=== PATIENT | male | born 1930 | race Caucasian/White ===

== ENCOUNTER 2017-12-18 20:36 | Inpatient (IN) | payer MEDICARE, MEDICAID ==
[~2017-12-18] VITALS: Ht 175.3 cm; Wt 74.8 kg
--- NOTE | 2017-12-18 20:50 | NUR ---
MD GONZALEZ AT BEDSIDE FOR MSE
[2017-12-18 21:02] LABS: BASOPHILS # (AUTO) 0.1 K/uL (0.0-8.0); BASOPHILS % (AUTO) 0.6 % (0.0-2.0); HEMATOCRIT 39.5 % (36.7-47.1); LYMPHOCYTES # (AUTO) 1.5 K/uL (20.0-40.0); LYMPHOCYTES % (AUTO) 6.2 % (20.5-51.5); MEAN CORPUSCULAR HEMOGLOBIN 28.1 uug (23.8-33.4); MEAN CORPUSCULAR HGB CONC 33 g/dL (32.5-36.3); MEAN CORPUSCULAR VOLUME 84.9 fL (73.0-96.2); MONOCYTES # (AUTO) 2.2 K/uL (2.0-10.0); NEUTROPHILS # (AUTO) 20.4 K/uL (1.8-8.9); NEUTROPHILS % (AUTO) 84.2 % (38.5-71.5); PLATELET COUNT (AUTO) 348 K/uL (152-348); RED BLOOD CELL COUNT(AUTO) 4.65 MIL/uL (4.06-5.63); WHITE BLOOD COUNT (AUTO) 24.2 K/uL (3.6-10.2)
[2017-12-18 21:03] LABS: *BILIRUBIN,URIN NEGATIVE (NEGATIVE); *BLOOD, URINE 2+ (NEGATIVE); *KETONES,URINE NEGATIVE (NEGATIVE); *PROTEIN,URINE TRACE (NEGATIVE); *UROBILINOGEN,URINE 0.2 E.U./dl (NORMAL); NITRITE, URINE NEGATIVE (NEGATIVE); PH,URINE 5.5 (5.0-8.0); UGLUCOSE NEGATIVE (NEGATIVE)
[2017-12-18 21:10] LABS: CARBON DIOXIDE 20 mmol/L (21-32); CHLORIDE 105 mmol/L (98-107); CREATININE 3.3 mg/dL (0.6-1.3); GLUCOSE 186 mg/dL (74-106); POTASSIUM 4.7 mmol/L (3.5-5.1); UREA NITROGEN, BLOOD 61 mg/dL (7-18)
[2017-12-18] MEDS ORDERED: IPRA0.2S6 NEB (21:14)
[2017-12-18] MEDS ORDERED: ESCI10TA PO (21:14)
[2017-12-18] MEDS ORDERED: BISA10SU12 RC (21:14)
[2017-12-18] MEDS ORDERED: MEGE400O2 PO (21:14)
[2017-12-18] MEDS ORDERED: FINA5TAB3 PO (21:14)
[2017-12-18] MEDS ORDERED: ASPI81TA44 PO (21:14)
[2017-12-18] MEDS ORDERED: QUET25TA PO (21:14)
[2017-12-18] MEDS ORDERED: MESA4ENE4 RC (21:14)
[2017-12-18] MEDS ORDERED: AMIN30LI27 PO (21:14)
[2017-12-18] MEDS ORDERED: MAG30ORA PO (21:14)
[2017-12-18] MEDS ORDERED: AMIO200T4 PO (21:14)
[2017-12-18] MEDS ORDERED: PREG50CA PO (21:14)
[2017-12-18] MEDS ORDERED: NA P133E RC (21:14)
[2017-12-18] MEDS ORDERED: ACET325T53 PO (21:14)
[2017-12-18] MEDS ORDERED: MAGN400O6 PO (21:14)
[2017-12-18] MEDS ORDERED: TAMS-3 PO (21:14)
[2017-12-18] MEDS ORDERED: CALC-555 PO (21:14)
[2017-12-18] MEDS ORDERED: ALBU2.5V38 IH (21:14)
[2017-12-18] MEDS ORDERED: IV NORMAL SALINE 1000 ML BAG IV ONE ×2 (21:15→22:45)
--- NOTE | 2017-12-18 21:17 | NUR ---
PT'S FAMILY ARRIVES TO BEDSIDE.
[2017-12-18 21:24] LABS: *CLARITY,URINE CLOUDY (CLEAR); *COLOR,URINE AMBER (YELLOW); LEUKOCYTE ESTERASE ,URINE 1+ (NEGATIVE)
[2017-12-18 21:25] LABS: BACTERIA,URINE MANY /HPF (NONE SEEN); SQUAMOUS EPITHELIAL CELL,UR FEW /HPF (NONE SEEN); WBC,URINE 20-50 /HPF (0-3)
[2017-12-18 21:25] LABS: ALANINE AMINOTRANSFERASE 36 U/L (16-63); ALKALINE PHOSPHATASE 73 U/L (50-136); ASPARTATE AMINOTRANSFERASE 28 U/L (15-37); BILIRUBIN,DIRECT 0.2 mg/dL (0.0-0.2); BILIRUBIN,TOTAL 0.7 mg/dL (0.2-1.0); TOTAL PROTEIN, SERUM 6.7 g/dL (6.4-8.2)
[2017-12-18 21:26] LABS: MUCUS,URINE FEW /LPF (0-FEW)
[2017-12-18] MEDS ORDERED: LEVOFLOXACIN 500 MG/D5W 100ML PIGGYBACK IV ONE (21:30)
[2017-12-18] MEDS ORDERED: ASPIRIN 300 MG RECTAL SUPP RC ONE (21:30)
[2017-12-18] MEDS ORDERED: PIPERACILLIN SODIUM/TAZOBACTAM 3.375 G in IV DEXTROSE 5% 50 ML IV ONE (21:30)
--- NOTE | 2017-12-18 21:30 | NUR ---
RT AT BEDSIDE FOR ABG DRAWING AND SUCTIONING
--- NOTE | 2017-12-18 21:36 | NUR ---
RU ALVAREZ NP LAND CLASSIFIER.
[2017-12-18] MEDS ORDERED: LEVOFLOXACIN 500 MG/D5W 100 ML ONE (21:37)
[2017-12-18] MEDS ORDERED: PANTOPRAZOLE SODIUM IV 80 MG in IV DEXTROSE 5% 500 ML IV ONE ×2 (21:45→22:15)
[2017-12-18] MEDS ORDERED: PANTOPRAZOLE SODIUM IV 80 MG in IV DEXTROSE 5% 100 ML IV ONE (21:45)
[2017-12-18] MEDS ORDERED: NITROGLYCERIN OINT 1 GM PACKET TP ONE ×2 (21:45→22:25)
[2017-12-18 21:53] LABS: BAND % (MANUAL) 25 % (0-10); LYMPHOCYTES % (MANUAL) 6 % (20-40); MONOCYTES % (MANUAL) 8 % (2-10); NEUTROPHILS % (MANUAL) 61 % (42-75)
--- NOTE | 2017-12-18 22:12 | NUR ---
REPORT GIVEN TO TELEMETRY TD NURSEMENG
[2017-12-18] MEDS ORDERED: PIPERACILLIN/TAZOBACTAM/D5W 50 ML IV ONE (22:14)
[2017-12-18] MEDS ORDERED: ACETAMINOPHEN 650 MG SUPP.RECT RC PRN (22:15)
[2017-12-18] MEDS ORDERED: ONDANSETRON 4 MG/2 ML VIAL IV PRN (22:15)
[2017-12-18] MEDS ORDERED: PANTOPRAZOLE SODIUM 40 MG VIAL ONE (22:17)
[2017-12-18 22:30] VITALS: BP 46/29
--- NOTE | 2017-12-18 22:30 | NUR ---
PT ADMITTED FROM ER TO CCU VIA [facility]. DIAGNOSIS OF SEVERE SEPSIS. ON CONTINUOUS 15L NON REBREATHER MASK 100% WITH O2 SAT 100%. ATTATCHED TO MONITOR. BP NOTED 46/29. NITRO PASTE ON CHEST WAS REMOVED. NS INFUSING FINISHING BOLOS FROM ER ON LEFT A/C. PROTONIX DRIP AT 8MG/HR. FROM ER ON RIGHT A/C. AYAKA PAPERHANGER WAS CALLED REGARDING LOW BP. STATED WILL CALL BACK. AWAITING ORDERS AT THIS TIME.
--- NOTE | 2017-12-18 22:35 | NUR ---
Pt. admitted to TELEMETRY TD, under care of TANIA ESPINAL Belongs List completed
[2017-12-18 22:45] VITALS: BP 47/31
[2017-12-18 23:00] VITALS: BP 138/63
--- NOTE | 2017-12-18 23:04 | NUR ---
IV BOLUS OF NS 500CC WAS HANGED AND COMPLETED.
--- NOTE | 2017-12-18 23:04 | NUR ---
DMITIR INSIDE SALES ASSOCIATE CALLED BACK WITH NEW ORDERS TO START NEOSYNEPHRINE DRIP PRN FOR BP <90. AT THIS TIME, BP IS 138/53 AFTER NITRO PASTE WAS REMOVED.
[2017-12-18 23:15] VITALS: BP 161/45
[2017-12-18] MEDS: IV D5 1/2 NS 1000 ML 1,000 ML IV SCH (23:25)
[2017-12-18 23:30] VITALS: BP 89/44
--- NOTE | 2017-12-18 23:30 | NUR ---
AYAKA CARD PLAYER HERE TO SEE PATIENT. FAMILY AWARE AT BEDSIDE AND SPOKE WITH AYAKA.
--- NOTE | 2017-12-18 23:35 | NUR ---
BP IS 75/47. WILL STAR NEOSYNEPHRINE DRIP.
[2017-12-18] MEDS ORDERED: PHENYLEPHRINE 10 MG/1 ML VIAL ONE (23:44)
[2017-12-18 23:45] VITALS: BP 75/47
[2017-12-19] VITALS (71 sets, daily range): BP systolic 69–162; BP diastolic 30–140
[2017-12-19] MEDS ORDERED: hydrALAZINE HCL 20 MG/1 ML VIAL IV PRN
[2017-12-19] MEDS ORDERED: IPRATROPIUM BROMIDE 0.5 MG/2.5 ML NEBU NEB PRN (00:15)
[2017-12-19] MEDS ORDERED: BISACODYL 10 MG SUPP.RECT RC PRN (00:15)
[2017-12-19] MEDS ORDERED: MAG HYDROX/AL HYDROX/SIMETH 30 ML LIQUID UDC PO PRN (00:15)
[2017-12-19] MEDS ORDERED: FLEET ENEMA 133 ML BOTTLE RC PRN (00:15)
[2017-12-19] MEDS: PHENYLEPHRINE IV 40 MG in IV DEXTROSE 5% 250 ML IV PRN ×2 (00:26→08:00)
--- NOTE | 2017-12-19 00:38 | NUR ---
LACTID ACID 4.[address] ROWELL. ORDERED 2L NS BOLUS. NOTED AND CARRIED OUT.
[2017-12-19] MEDS ORDERED: IV NS 1000 ML 2,000 ML IV ONE (00:45)
[2017-12-19] MEDS: IPRATROPIUM BROMIDE 0.5 MG/2.5 ML NEBU NEB PRN (00:52)
[2017-12-19] MEDS: ALBUTEROL SULFATE 2.5 MG/ 0.5 ML NEBU NEB PRN (00:52)
[2017-12-19 02:47] LABS: ABG PCO2 23.9 mmHg (35.0-45.0); ABG PH 7.416 (7.350-7.450); ABG PO2 77.3 mmHg (75.0-100.0); ABG SITE RIGHT BRACHIAL; ABG TOTAL HEMOGLOBIN 10.9 G/dL (13.5-18.0); COHb 1.1 % (0.5-1.5); MetHb 0.3 % (0.0-1.5); O2Hb 93.8 % (94.0-97.0); VENT MODE Nasal Cannula
[2017-12-19 05:26] LABS: BASOPHILS % (AUTO) 0.1 % (0.0-2.0); EOSINOPHILS % (AUTO) 0.1 % (0.0-7.0); HEMATOCRIT 31.9 % (36.7-47.1); HEMOGLOBIN 10.5 g/dL (12.5-16.3); LYMPHOCYTES # (AUTO) 0.8 K/uL (20.0-40.0); LYMPHOCYTES % (AUTO) 4.3 % (20.5-51.5); MEAN CORPUSCULAR HEMOGLOBIN 27.8 uug (23.8-33.4); MEAN CORPUSCULAR HGB CONC 33 g/dL (32.5-36.3); MEAN CORPUSCULAR VOLUME 84.3 fL (73.0-96.2); MONOCYTES # (AUTO) 2.2 K/uL (2.0-10.0); MONOCYTES % (AUTO) 12.6 % (0.0-11.0); NEUTROPHILS # (AUTO) 14.8 K/uL (1.8-8.9); NEUTROPHILS % (AUTO) 82.9 % (38.5-71.5); PLATELET COUNT (AUTO) 298 K/uL (152-348); RED BLOOD CELL COUNT(AUTO) 3.79 MIL/uL (4.06-5.63); WHITE BLOOD COUNT (AUTO) 17.8 K/uL (3.6-10.2)
--- NOTE | 2017-12-19 05:34 | NUR ---
PATIENT SUCTIONED VIA NASOPHARYNX
[2017-12-19] MEDS ORDERED: PIPERACILLIN/TAZO 2.25 GM VIAL ONE (05:37)
[2017-12-19 05:50] LABS: ALANINE AMINOTRANSFERASE 24 U/L (16-63); ALKALINE PHOSPHATASE 52 U/L (50-136); ASPARTATE AMINOTRANSFERASE 23 U/L (15-37); BILIRUBIN,TOTAL 0.5 mg/dL (0.2-1.0); CARBON DIOXIDE 18 mmol/L (21-32); CHLORIDE 110 mmol/L (98-107); CREATININE 2.8 mg/dL (0.6-1.3); GLUCOSE 175 mg/dL (74-106); MAGNESIUM 1.8 mg/dL (1.8-2.4); PHOSPHOROUS 3.2 mg/dL (2.5-4.9); TOTAL PROTEIN, SERUM 4.8 g/dL (6.4-8.2); UREA NITROGEN, BLOOD 57 mg/dL (7-18)
--- NOTE | 2017-12-19 06:00 | NUR ---
had another bowel movement loose & thick w/ foul odor. repositioned pt on his side w/ hob elevated.
[2017-12-19] MEDS: PIPERACILLIN/TAZOBACTAM/D5W 2.25 G in PREMIXED 1 EACH IV SCH ×2 (06:10→14:14)
[2017-12-19 06:31] LABS: CHOLESTEROL 113 mg/dL (<200); HDL CHOLESTEROL 12 mg/dL (40-60); TRIGLYCERIDES 284 MG/DL (30-150)
--- NOTE | 2017-12-19 07:25 | NUR ---
Attending services Epic group Demetry in the unit and report given, orders to bolus 1L normal saline, and ABG to be done. Orders implemented.
[2017-12-19] MEDS: PROTEIN SUPPLEMENT (PROSTAT) 30 ML LIQUID PO SCH (08:00)
[2017-12-19] MEDS ORDERED: IV NS 1000 ML 1,000 ML IV ONE (08:15)
--- NOTE | 2017-12-19 08:29 | NUR ---
0715 Upon receiving bedside report pt's assessed and found to have 102.8 fever, measured rectally. HR 130-140's. RR in the upper 30's pt. shaking as reported pt. with history of alzeimers. Addendum: 12/19/17 at 0835 by PAULINA GAYLE RN Patient started on cooling measures, and antipyretics administered.
[2017-12-19] MEDS: MEGESTROL ACETATE 400 MG/10 ML LIQUID UDC PO SCH (08:46)
[2017-12-19] MEDS: PANTOPRAZOLE SODIUM 40 MG VIAL IV SCH ×2 (08:46→21:18)
[2017-12-19] MEDS: FINASTERIDE 5 MG TABLET PO SCH (08:47)
[2017-12-19] MEDS: CALCIUM CARB/VITAMIN D 500MG-200UNITS TABLET PO SCH ×2 (08:47→16:31)
[2017-12-19] MEDS: Z GUARD REMEDY PASTE 57 GM TUBE TOP SCH ×2 (08:48→21:19)
[2017-12-19] MEDS ORDERED: ESCITALOPRAM OXALATE 10 MG TABLET PO SCH ×2 (09:00)
[2017-12-19] MEDS ORDERED: AMIODARONE HCL 200 MG TABLET PO SCH (09:00)
[2017-12-19] MEDS ORDERED: Medication Not On Formulary EA (Amino Acids/Protein Hydrolys (Pro-Stat Sugar Free Liquid PO SCH (09:00)
[2017-12-19] MEDS ORDERED: PREGABALIN 50 MG CAPSULE PO SCH ×2 (09:00)
--- NOTE | 2017-12-19 09:40 | NUR ---
Pulmonology services in the unit to see and examine patient, full report given, see orders.
--- NOTE | 2017-12-19 10:17 | NUR ---
ABG RESULTS GIVEN TO THE DOUGLAS GALLARDO. [employer] DIRECTOR WOMEN IS CURRENTLY DOWN, TECHNICAL SUPPORT NOTIFIED.
--- NOTE | 2017-12-19 10:37 | NUR ---
Gi services Dr. Forde in the unit to see and examine pt. at this time attending Lenard Marte in the unit.
--- NOTE | 2017-12-19 12:04 | NUR ---
At this time pt. on SVT rhythm sbp of 91/54, attending Lenard Bains in the unit, Dr. Romero shorthand reporter called and notified by Nara orders received and carried.
[2017-12-19] MEDS ORDERED: AMIODARONE HCL IV 150 MG in IV DEXTROSE 5% 100 ML IV ONE ×2 (12:15→16:30)
[2017-12-19] MEDS ORDERED: AMIODARONE HCL IV 900 MG in IV DEXTROSE 5% 482 ML IV PRN (12:15)
[2017-12-19 12:24] LABS: *OCCULT BLOOD STOOL POSITIVE (NEGATIVE)
--- NOTE | 2017-12-19 14:25 | NUR ---
A call to Dr. Henry to notify of low urine output. message left with soyfreeze operator, awaiting call back.
--- NOTE | 2017-12-19 15:00 | NUR ---
2nd call to nephro awaiting call back.
[2017-12-19 15:12] LABS: *BILIRUBIN,URIN 1+ (NEGATIVE); *BLOOD, URINE 3+ (NEGATIVE); *CLARITY,URINE CLOUDY (CLEAR); *KETONES,URINE TRACE (NEGATIVE); *PROTEIN,URINE 2+ (NEGATIVE); *UROBILINOGEN,URINE 0.2 E.U./dl (NORMAL); LEUKOCYTE ESTERASE ,URINE 1+ (NEGATIVE); NITRITE, URINE NEGATIVE (NEGATIVE); UGLUCOSE NEGATIVE (NEGATIVE)
--- NOTE | 2017-12-19 15:15 | NUR ---
Cardiology services Dr. Romero in the unit to see and examine, pt. orders received and carried it. also notified of low urine output.
[2017-12-19 15:19] LABS: *COLOR,URINE DARK YELLOW (YELLOW)
[2017-12-19 15:20] LABS: RBC,URINE 20-50 /HPF (0-3)
[2017-12-19 15:21] LABS: BACTERIA,URINE MANY /HPF (NONE SEEN); SQUAMOUS EPITHELIAL CELL,UR FEW /HPF (NONE SEEN); URIC ACID CRYSTALS,URINE MODERATE /HPF (NONE SEEN); WBC,URINE 50-80 /HPF (0-3)
[2017-12-19 15:25] LABS: *CREATININE,URINE 182.7 mg/dL (30-125); *URINE TOTAL PROTEIN RANDOM 137.3 mg/dL (<150/24HR)
--- NOTE | 2017-12-19 16:15 | NUR ---
At this time with repositioning to left side patient went into SVT sustained, Wholesale And Retail Merchant Dr. Romero notified. Addendum: 12/29/17 at 1647 by PAULINA GAYLE RN Orders to bolus with 150mg of amiodarone x1 received.
--- NOTE | 2017-12-19 16:30 | NUR ---
Mma Fighter Dr. Romero in to personally examine pt. cardiac rhythm remains in SVT's above 160" with stable sbp. Order received. see order hx.
[2017-12-19] MEDS ORDERED: QUETIAPINE FUMARATE 25 MG TABLET PO SCH ×2 (18:00→21:00)
--- NOTE | 2017-12-19 18:00 | NUR ---
After bladder scanned and a reading of 26cc urine obtained Dr. Romero called orders for a 500cc Normal saline bolus received.
--- NOTE | 2017-12-19 18:30 | NUR ---
Attending N.P. called and informed of bladder scan and irrigation results. orders for CT. scan to abodmen and pelvis received without contrast received. And orders to consult Urologist bakery demonstrator. Orders carried.
[2017-12-19] MEDS ORDERED: IV NORMAL SALINE 500 ML IV ONE (18:45)
--- NOTE | 2017-12-19 18:57 | NUR ---
A call to Dr. Luna informed of consult ordered by attending N.P. Full report of pt's current condition including recent labs. Orders to continue monitor received.
--- NOTE | 2017-12-19 19:30 | NUR ---
PT IN ROOM ON NRM 15L WITH 100% O2 SAT. NO S/S OF ACUTE DISTRESS. HR 111 SINUS TACHY WITH BP 128/75. NO FEVER OR CHILLS PRESENT. UNABLE TO MAKE NEEDS KNOWN. MAINTAINING AMIODARONE DRIP AT 0.5 MG. BOLUS OF 500ML NS STILL PRESENT. 3 SIDE RAILS RAISED WITH HOB [address] WITH AIR MATTRESS ON. AWAITING CT SCAN OF ABDOMEN. WILL CONTINUE TO MONITOR. F/C INTACT CLEAR BERNARD.
--- NOTE | 2017-12-19 20:00 | NUR ---
Pt assisted to radiology department for CT scan.
[2017-12-19] MEDS ORDERED: MEROPENEM 500 MG in IV NORMAL SALINE 50 ML IV SCH (20:30)
--- NOTE | 2017-12-19 20:55 | NUR ---
PHARMACY CLINICAL NOTES: (VANCOMYCIN DOSING) S: 87 Yo male with DX of septic shock, GNR UTI, possible aspiration PNA; previously on Zosyn Md changed to Merrem and Vancomycin per pharmacy. O: BUN/SCR 57/2.8; WBC 17.8; T MAX 102.8; DOSING WT 137 LBS A/P: Per calculation a regimen of 1gm q48h would yield peak of 39.3and trough of 16.86. However; due to advanced age and elevated Scr (2.8) will dose vanco per fall of level . Will give one dose of 1 gm and will ck random level in 48hr if renal fxn does not change. will continue to monitor.
[2017-12-19] MEDS ORDERED: LEVOFLOXACIN 250MG /D5W 250 MG in PREMIXED 1 EACH IV SCH (21:00)
[2017-12-19] MEDS ORDERED: MESALAMINE ENEMA 4 G/60 ML BOTTLE RC SCH (21:00)
[2017-12-19] MEDS: TAMSULOSIN HCL 0.4 MG CAP.SR.24H PO SCH (21:00)
[2017-12-19] MEDS: IV D5 1/2 NS 1000 ML 1,000 ML IV SCH (21:17)
[2017-12-19] MEDS: MEROPENEM 500 MG in IV NORMAL SALINE 50 ML IV SCH (21:18)
[2017-12-19] MEDS ORDERED: VANCOMYCIN IV 1 G in PREMIXED 0 EACH IV ONE (22:00)
[2017-12-20] VITALS (30 sets, daily range): BP systolic 89–137; BP diastolic 25–102
--- NOTE | 2017-12-20 01:00 | NUR ---
No episodes of increased HR at this time. No fever or chills present. No adverse reactions to recent merrem and vancomycin IV therapy. Will continue to monitor.
[2017-12-20 05:14] LABS: BASOPHILS % (AUTO) 0.2 % (0.0-2.0); EOSINOPHILS % (AUTO) 0.1 % (0.0-7.0); HEMATOCRIT 30.5 % (36.7-47.1); HEMOGLOBIN 10.2 g/dL (12.5-16.3); LYMPHOCYTES # (AUTO) 0.2 K/uL (20.0-40.0); LYMPHOCYTES % (AUTO) 1.1 % (20.5-51.5); MEAN CORPUSCULAR HGB CONC 33 g/dL (32.5-36.3); MEAN CORPUSCULAR VOLUME 83.9 fL (73.0-96.2); MONOCYTES # (AUTO) 4.3 K/uL (2.0-10.0); MONOCYTES % (AUTO) 24.7 % (0.0-11.0); NEUTROPHILS # (AUTO) 12.9 K/uL (1.8-8.9); NEUTROPHILS % (AUTO) 73.9 % (38.5-71.5); PLATELET COUNT (AUTO) 260 K/uL (152-348); RED BLOOD CELL COUNT(AUTO) 3.64 MIL/uL (4.06-5.63); WHITE BLOOD COUNT (AUTO) 17.5 K/uL (3.6-10.2)
[2017-12-20 05:19] LABS: CARBON DIOXIDE 16 mmol/L (21-32); CHLORIDE 106 mmol/L (98-107); CREATININE 2.6 mg/dL (0.6-1.3); GLUCOSE 139 mg/dL (74-106); MAGNESIUM 1.6 mg/dL (1.8-2.4); PHOSPHOROUS 3.1 mg/dL (2.5-4.9); POTASSIUM 3.9 mmol/L (3.5-5.1); UREA NITROGEN, BLOOD 60 mg/dL (7-18)
--- NOTE | 2017-12-20 06:30 | NUR ---
No episodes of SVT or s/s of resp distress overnight. Pt suctioned with moderate linton mucus. No fever or chills. F/c intact draining up to 260cc output. Maintaining nonverbal status. HOB elevated 30 degrees with two side rails raised. Will endorse to day shift.
[2017-12-20] MEDS: PROTEIN SUPPLEMENT (PROSTAT) 30 ML LIQUID PO SCH (07:48)
--- NOTE | 2017-12-20 08:00 | NUR ---
Attending services Roni in the unit to see and examine pt.
[2017-12-20] MEDS ORDERED: IV NORMAL SALINE 500 ML BAG IV ONE (08:15)
[2017-12-20] MEDS: LORAZEPAM 2 MG/1 ML VIAL IV PRN (08:25)
[2017-12-20] MEDS ORDERED: DEXTROSE 5% IV ONE (08:30)
[2017-12-20] MEDS ORDERED: CALCIUM CHLORIDE IV ONE (08:30)
[2017-12-20] MEDS ORDERED: IV NORMAL SALINE 500 ML IV ONE (08:45)
--- NOTE | 2017-12-20 08:54 | NUR ---
NG- tube in and Kub for placement order.
[2017-12-20] MEDS ORDERED: AMIODARONE HCL 200 MG TABLET PO SCH (09:00)
[2017-12-20] MEDS: FINASTERIDE 5 MG TABLET PO SCH (09:00)
[2017-12-20] MEDS: CALCIUM CARB/VITAMIN D 500MG-200UNITS TABLET PO SCH ×3 (09:00→16:22)
[2017-12-20] MEDS: MEGESTROL ACETATE 400 MG/10 ML LIQUID UDC PO SCH ×2 (09:00→12:41)
[2017-12-20] MEDS: MEROPENEM 500 MG in IV NORMAL SALINE 50 ML IV SCH ×2 (09:04→20:20)
[2017-12-20] MEDS: Z GUARD REMEDY PASTE 57 GM TUBE TOP SCH ×2 (09:05→20:24)
[2017-12-20] MEDS: PANTOPRAZOLE SODIUM 40 MG VIAL IV SCH ×2 (09:05→20:23)
[2017-12-20 09:24] LABS: BAND % (MANUAL) 13 % (0-10); EOSINOPHILS % (MANUAL) 0 % (0-8); LYMPHOCYTES % (MANUAL) 10 % (20-40); MONOCYTES % (MANUAL) 15 % (2-10); NEUTROPHILS % (MANUAL) 62 % (42-75)
[2017-12-20] MEDS: MAGNESIUM SULFATE/D5W 100 ML IV SCH ×2 (10:03→11:06)
--- NOTE | 2017-12-20 12:00 | NUR ---
Cardiology services Dr. Romero in the unit to examine patient.
--- NOTE | 2017-12-20 12:19 | NUR ---
PHARMACY CLINICAL NOTES: (VANCOMYCIN DOSING) S: To continue Vancomycin on this 87 Yo male with DX of septic shock, GNR UTI, possible aspiration PNA; previously on Zocecilio Cook changed to Merrem and Vancomycin per pharmacy. O: BUN/SCR 60/2.6; WBC 17.5; T MAX 98.6; DOSING WT 137 LBS A/P: Due to advanced age and elevated Scr (2.6) will continue to dose vanco per fall of level . One dose of 1 gm was given last night at 2200. Random is on order for tomorrow am. Will follow the level for further dosing.
[2017-12-20] MEDS: AMIODARONE HCL 200 MG TABLET PO SCH ×2 (12:42→20:23)
[2017-12-20] MEDS: IV D5 1/2 NS 1000 ML 1,000 ML IV SCH (16:24)
--- NOTE | 2017-12-20 17:45 | NUR ---
Dr. Moreno in the unit to examine patient.
--- NOTE | 2017-12-20 18:25 | NUR ---
patient seen by occupational hygienist with recommendation approved by attending.
[2017-12-20] MEDS ORDERED: VITAL AF 1.2 1,000 ML LIQUID GT PRN (18:30)
--- NOTE | 2017-12-20 19:30 | NUR ---
Seen and evaluated by Mary Stiles; condition update given. Made aware of positive MRSA nares and stool CDiff. Will start pt on IV Flagyl, DC IV Vanco and change to NG route.
--- NOTE | 2017-12-20 20:00 | NUR ---
Contact isolation observed at all times. Pt appears calm and comfortable. In no apparent acute distress. Stable Sinus Tachy with no episodes of SVT. Off Amiodarone drip and now on NG med. Started on NGT feeding Vital AF 1.2 Martinez with goal of 65 ml/hr. Aspiration precautions observed. Maintaining excellent sats on simple mask 6L/min. Requires NT suctioning via nasal trumpet to large thick linton yellow secretions. Turned/positioned q 2hr and PRN. Nursing comfort measures observed at all times. Please see CCU flowsheet for full assessment and clinical data.
[2017-12-20] MEDS: VITAL AF 1.2 1,000 ML LIQUID GT PRN (20:21)
[2017-12-20] MEDS: TAMSULOSIN HCL 0.4 MG CAP.SR.24H PO SCH (20:23)
[2017-12-20] MEDS ORDERED: LEVOFLOXACIN 250MG /D5W 250 MG in PREMIXED 1 EACH IV SCH (21:00)
[2017-12-20] MEDS: METRONIDAZOLE 500 MG/NS 100ML 500 MG in PREMIXED 1 EACH IV SCH (22:02)
[2017-12-20] MEDS: VANCOMYCIN FOR PO/GT/NG USE PO SCH (23:40)
[2017-12-21] VITALS (24 sets, daily range): BP systolic 89–119; BP diastolic 53–69
[2017-12-21 05:02] LABS: BASOPHILS % (AUTO) 0.1 % (0.0-2.0); HEMATOCRIT 29.2 % (36.7-47.1); HEMOGLOBIN 10.1 g/dL (12.5-16.3); LYMPHOCYTES # (AUTO) 5.9 K/uL (20.0-40.0); LYMPHOCYTES % (AUTO) 23.7 % (20.5-51.5); MEAN CORPUSCULAR HEMOGLOBIN 28.3 uug (23.8-33.4); MEAN CORPUSCULAR HGB CONC 34 g/dL (32.5-36.3); MEAN CORPUSCULAR VOLUME 82.4 fL (73.0-96.2); MONOCYTES # (AUTO) 3.3 K/uL (2.0-10.0); MONOCYTES % (AUTO) 13.5 % (0.0-11.0); NEUTROPHILS # (AUTO) 15.5 K/uL (1.8-8.9); NEUTROPHILS % (AUTO) 62.7 % (38.5-71.5); PLATELET COUNT (AUTO) 265 K/uL (152-348); RED BLOOD CELL COUNT(AUTO) 3.55 MIL/uL (4.06-5.63); WHITE BLOOD COUNT (AUTO) 24.7 K/uL (3.6-10.2)
[2017-12-21 05:03] LABS: ABG BASE EXCESS -12.6 mmol/L; ABG HCO3 11.1 mmol/L; ABG PCO2 20.7 mmHg (35.0-45.0); ABG PH 7.349 (7.350-7.450); ABG PO2 113.7 mmHg (75.0-100.0); ABG SITE RIGHT RADIAL; ABG TOTAL HEMOGLOBIN 10.8 G/dL (13.5-18.0); COHb 0.5 % (0.5-1.5); MetHb 0.4 % (0.0-1.5)
[2017-12-21 05:03] LABS: ABG BASE EXCESS -12.4 mmol/L; ABG HCO3 12.2 mmol/L; ABG PCO2 24.3 mmHg (35.0-45.0); ABG PH 7.317 (7.350-7.450); ABG PO2 77.8 mmHg (75.0-100.0); ABG SITE LEFT RADIAL; ABG TOTAL HEMOGLOBIN 10.9 G/dL (13.5-18.0); COHb 0.8 % (0.5-1.5); MetHb 0.3 % (0.0-1.5); O2Hb 93.9 % (94.0-97.0)
[2017-12-21] MEDS: METRONIDAZOLE 500 MG/NS 100ML 500 MG in PREMIXED 1 EACH IV SCH ×3 (05:32→22:06)
[2017-12-21] MEDS: VANCOMYCIN FOR PO/GT/NG USE PO SCH ×4 (05:32→23:33)
[2017-12-21 05:49] LABS: ALANINE AMINOTRANSFERASE 23 U/L (16-63); ALKALINE PHOSPHATASE 72 U/L (50-136); ASPARTATE AMINOTRANSFERASE 29 U/L (15-37); BILIRUBIN,TOTAL 0.4 mg/dL (0.2-1.0); CARBON DIOXIDE 18 mmol/L (21-32); CHLORIDE 106 mmol/L (98-107); CREATININE 2.3 mg/dL (0.6-1.3); GLUCOSE 157 mg/dL (74-106); MAGNESIUM 2.2 mg/dL (1.8-2.4); PHOSPHOROUS 2.9 mg/dL (2.5-4.9); POTASSIUM 3.6 mmol/L (3.5-5.1); TOTAL PROTEIN, SERUM 4.4 g/dL (6.4-8.2); UREA NITROGEN, BLOOD 62 mg/dL (7-18)
--- NOTE | 2017-12-21 06:00 | NUR ---
Noted to be spontaneously opening eyes more since started on Flagyl and NG Vanco. Stable rhythm and VS. Afebrile. Please see CCU flowsheet for trends and clinical data.
--- NOTE | 2017-12-21 07:45 | NUR ---
received a 87 y/o male pt as a case of sepsis, UTI, drowsy semi alert, breathing via simple mask @ 6lpm, connected to ecg monitor showing sinus tachycardia, has an NGT receiving feeding vital af @ rate 20ml/hr, has a LT upper arm PICC line , receiving IVF D5 1/2NS @ 50ML/HR. Urinating via fc pt on contact isolation
[2017-12-21] MEDS: CALCIUM CARB/VITAMIN D 500MG-200UNITS TABLET PO SCH ×2 (08:29→18:14)
[2017-12-21] MEDS: PANTOPRAZOLE SODIUM 40 MG VIAL IV SCH (08:29)
[2017-12-21] MEDS: FINASTERIDE 5 MG TABLET PO SCH (08:29)
[2017-12-21] MEDS: MEROPENEM 500 MG in IV NORMAL SALINE 50 ML IV SCH ×2 (08:30→20:29)
[2017-12-21] MEDS: Z GUARD REMEDY PASTE 57 GM TUBE TOP SCH ×2 (08:30→20:30)
[2017-12-21] MEDS: AMIODARONE HCL 200 MG TABLET PO SCH ×2 (08:30→20:30)
--- NOTE | 2017-12-21 08:30 | NUR ---
seen by TANIA ramirez, informed about low UOP, ordered to give bolus NS 500 ml IV stat, IVF changed to N/S o.9% rate 75ml/hr.
[2017-12-21] MEDS: MEGESTROL ACETATE 400 MG/10 ML LIQUID UDC PO SCH (08:31)
[2017-12-21] MEDS: PROTEIN SUPPLEMENT (PROSTAT) 30 ML LIQUID PO SCH (08:31)
[2017-12-21] MEDS ORDERED: IV NORMAL SALINE 500 ML IV ONE (08:45)
[2017-12-21] MEDS: IV NS 1000 ML 1,000 ML IV SCH ×2 (08:55→22:08)
[2017-12-21] MEDS: MUPIROCIN 2% OINT 22 GM TUBE NS SCH ×2 (09:54→21:04)
--- NOTE | 2017-12-21 12:00 | NUR ---
ORAL CARE DONE , NASAL SUCTION DONE, MEDIUM AMOUNT OF THICK SECRETIONS. PTS TURNED AND BACK ASSESSED
[2017-12-21] MEDS: ALBUTEROL SULFATE 2.5 MG/ 0.5 ML NEBU NEB PRN (14:05)
[2017-12-21] MEDS: IPRATROPIUM BROMIDE 0.5 MG/2.5 ML NEBU NEB PRN (14:05)
--- NOTE | 2017-12-21 14:40 | NUR ---
PT SENT DOWN TO RADIOLOGY UNIT FOR ABDOMINAL CT SCAN, DONE NO COMPLICATIONS AND BACK TO THE UNIT AROUND 15:10
--- NOTE | 2017-12-21 20:00 | NUR ---
Pt more awake, alert, good eye contact. Has verbalizations non-[place]er, gets restless and not able to follow commands. Safety measures observed at all times. Stable VS and rhythm. Tube feeding well tolerated. Aspiration precautions observed at all times. Please see CCU flowsheet for full assessment and clinical data. Seen by Mary Stiles, no new orders.
[2017-12-21] MEDS: PANTOPRAZOLE ORAL SUSPENSION 40 MG SUSPDR.PKT GT SCH (20:29)
[2017-12-21] MEDS: TAMSULOSIN HCL 0.4 MG CAP.SR.24H PO SCH (20:30)
[2017-12-21] MEDS: VITAL AF 1.2 1,000 ML LIQUID GT PRN (21:01)
[2017-12-21] MEDS: LORAZEPAM 2 MG/1 ML VIAL IV PRN (23:39)
--- NOTE | 2017-12-21 23:40 | NUR ---
Pt continues to be restless, fidgety, pulling out business solutions director, gown. Ativan IV given and safety precautions observed.
[2017-12-22] VITALS (55 sets, daily range): BP systolic 80–136; BP diastolic 46–82
--- NOTE | 2017-12-22 00:01 | NUR ---
Tube feeding rate increased to 50 ml/hr as ordered. (Note: goal rate 65ml/hr x 20 hr). Aspiration precautions observed at all times.
--- NOTE | 2017-12-22 02:00 | NUR ---
Sleeping at periodic intervals. Suctioned PRN to thick pale yellow linton secretions moderate amounts. Oral care PRN.
--- NOTE | 2017-12-22 04:45 | NUR ---
Monitor alarming for SVT rate 160's after PICC line flushed with NS after this AM's lab draw. Pt asymptomatic, restful. Afebrile at 98.8 axillary. Nursing comfort measures maintained. NT suctioned to same secretions.
--- NOTE | 2017-12-22 05:20 | NUR ---
Monitor remained sustained SVT rate 160's, O2 was reapplied at 2L/min. Remained aymptomatic. EKG done and SVT confirmed. Dr. Bryant notified and received order for Adenosine 12 mg IVP.
[2017-12-22] MEDS: VANCOMYCIN FOR PO/GT/NG USE PO SCH ×4 (05:22→23:25)
[2017-12-22] MEDS: METRONIDAZOLE 500 MG/NS 100ML 500 MG in PREMIXED 1 EACH IV SCH ×3 (05:22→21:34)
[2017-12-22 05:32] LABS: BASOPHILS # (AUTO) 0.1 K/uL (0.0-8.0); BASOPHILS % (AUTO) 0.3 % (0.0-2.0); EOSINOPHILS # (AUTO) 0.1 K/uL (0.0-0.7); EOSINOPHILS % (AUTO) 0.2 % (0.0-7.0); HEMATOCRIT 29.5 % (36.7-47.1); LYMPHOCYTES # (AUTO) 0.2 K/uL (20.0-40.0); LYMPHOCYTES % (AUTO) 0.8 % (20.5-51.5); MEAN CORPUSCULAR HGB CONC 34 g/dL (32.5-36.3); MEAN CORPUSCULAR VOLUME 82.3 fL (73.0-96.2); MONOCYTES % (AUTO) 23.8 % (0.0-11.0); NEUTROPHILS # (AUTO) 18.9 K/uL (1.8-8.9); NEUTROPHILS % (AUTO) 74.9 % (38.5-71.5); PLATELET COUNT (AUTO) 269 K/uL (152-348); RED BLOOD CELL COUNT(AUTO) 3.58 MIL/uL (4.06-5.63); WHITE BLOOD COUNT (AUTO) 25.2 K/uL (3.6-10.2)
[2017-12-22 05:37] LABS: ALANINE AMINOTRANSFERASE 27 U/L (16-63); ALKALINE PHOSPHATASE 138 U/L (50-136); ASPARTATE AMINOTRANSFERASE 32 U/L (15-37); BILIRUBIN,TOTAL 0.3 mg/dL (0.2-1.0); CARBON DIOXIDE 16 mmol/L (21-32); CHLORIDE 108 mmol/L (98-107); CREATININE 1.8 mg/dL (0.6-1.3); GLUCOSE 147 mg/dL (74-106); MAGNESIUM 2.2 mg/dL (1.8-2.4); PHOSPHOROUS 2.3 mg/dL (2.5-4.9); POTASSIUM 3.2 mmol/L (3.5-5.1); TOTAL PROTEIN, SERUM 4.2 g/dL (6.4-8.2); UREA NITROGEN, BLOOD 62 mg/dL (7-18)
[2017-12-22] MEDS ORDERED: ADENOSINE 6 MG/2 ML SYR IV ONE (05:45)
--- NOTE | 2017-12-22 05:51 | NUR ---
Adenosine given and rate down as low as 37/min, gradually back to baseline SR-ST. Please see rhythm strips. NG tube residuals noted 120 ml while pt laying supine. TF held and will continue to monitor closely. Please see CCU flowsheet for trends and clinical data.
[2017-12-22 06:30] LABS: BAND % (MANUAL) 23 % (0-10); LYMPHOCYTES % (MANUAL) 4 % (20-40); METAMYELOCYTES % 3 % (0-1); MONOCYTES % (MANUAL) 12 % (2-10); MYELOCYTES % 1 % (0-0); NEUTROPHILS % (MANUAL) 57 % (42-75)
--- NOTE | 2017-12-22 07:40 | NUR ---
Received a 87 y/o male pt as a case of sepsis, UTI, drowsy semi alert, breathing via simple mask @ 6lpm, connected to ecg monitor showing sinus tachycardia, around 112bpm. has an NGT receiving feeding vital af @ rate 50ml/hr, held since 0600, due to having residual 120ml, to check again at 0800. has a LT upper arm PICC line , receiving IVF N/S 75ML/HR. Urinating via FC pt on contact isolation
[2017-12-22 07:58] LABS: ABG BASE EXCESS -9.5 mmol/L; ABG HCO3 13.8 mmol/L; ABG PCO2 23.3 mmHg (35.0-45.0); ABG PH 7.391 (7.350-7.450); ABG PO2 73.4 mmHg (75.0-100.0); ABG SITE RIGHT RADIAL; COHb 0.8 % (0.5-1.5); MetHb 0.3 % (0.0-1.5); O2Hb 93.9 % (94.0-97.0); VENT MODE Nasal Cannula
--- NOTE | 2017-12-22 08:20 | NUR ---
NGT placement checked, residual checked 110ml, feeding held to be checked after 2hrs, TANIA Rhodes INFORMED
[2017-12-22] MEDS: AMIODARONE HCL 200 MG TABLET PO SCH ×2 (08:35→20:40)
[2017-12-22] MEDS: PANTOPRAZOLE ORAL SUSPENSION 40 MG SUSPDR.PKT GT SCH ×2 (08:35→20:41)
[2017-12-22] MEDS: FINASTERIDE 5 MG TABLET PO SCH (08:35)
[2017-12-22] MEDS: Z GUARD REMEDY PASTE 57 GM TUBE TOP SCH ×2 (08:35→20:40)
[2017-12-22] MEDS: CALCIUM CARB/VITAMIN D 500MG-200UNITS TABLET PO SCH ×2 (08:35→17:16)
[2017-12-22] MEDS: MUPIROCIN 2% OINT 22 GM TUBE NS SCH ×2 (08:36→20:41)
[2017-12-22] MEDS: PROTEIN SUPPLEMENT (PROSTAT) 30 ML LIQUID PO SCH (08:36)
[2017-12-22] MEDS: MEGESTROL ACETATE 400 MG/10 ML LIQUID UDC PO SCH (08:37)
[2017-12-22] MEDS: MEROPENEM 500 MG in IV NORMAL SALINE 50 ML IV SCH ×2 (08:38→20:40)
--- NOTE | 2017-12-22 09:00 | NUR ---
seen by Carmelo,SURFACE HYDROLOGIST assessed pt, order put in to replace potassium, and lasix iv given due to low uop and congestion.
[2017-12-22] MEDS ORDERED: POTASSIUM CHLORIDE 20 MEQ POWDER PACKET PO ONE (09:30)
[2017-12-22] MEDS ORDERED: FUROSEMIDE 40 MG/4 ML VIAL IV ONE (09:30)
--- NOTE | 2017-12-22 11:44 | NUR ---
SEEN BY DR MERCADO, UPDATES GIVEN, PT SHOWING CONGESTION, HE ORDERED TO STOP IVF
[2017-12-22] MEDS ORDERED: ALBUMIN HUMAN 25% 50 ML IV ONE (12:30)
--- NOTE | 2017-12-22 12:45 | NUR ---
PATIENT STARTED ON LEVOPHED DRIP TO SUSTAIN BLOOD PRESSURE. NASAL SUCTION DONE , MEDIUM AMOUNT OF SECRETIONS.
[2017-12-22] MEDS: NOREPINEPHRINE BITARTRATE 8 MG in IV DEXTROSE 5% 500 ML IV PRN (12:46)
[2017-12-22] MEDS ORDERED: NEUTRA PHOS PACKET GT ONE (16:30)
--- NOTE | 2017-12-22 17:00 | NUR ---
seen by TANIA Cardoso, danielle. ordered to keep pt on intermediate wall suction and do a stat KUB, order received.
--- NOTE | 2017-12-22 18:30 | NUR ---
patient passed a large amount of green stool. care done, and position changed.
--- NOTE | 2017-12-22 19:30 | NUR ---
Report received. Patient 87 y.o male DX: sepsis, UTI. On contact isolation for MRSA nares and Stool C diff. Doesn't open eyes to name calls or pain. Non verbal. On continuous Levophed drip for BP support via PICC line MARIBETH. O2 2L NC; with audible congestion. HOB elevated above 30 degrees at all times. Suctioned orally; with thick white secretions. Gags when suctioned, but with very poor cough effort. NGT L nare to low intermittent suction; light brown drainage. Assessment done. See ICU flow sheet for complete data. Spoke to Linus re: surgical consult ordered by TANIA Austin. Okayed to notify animal control specialist in am. Addendum: 12/22/17 at 2147 by KAILEE PERDOMO RN Amended: Links added.
[2017-12-22] MEDS: TAMSULOSIN HCL 0.4 MG CAP.SR.24H PO SCH (20:38)
[2017-12-22] MEDS: IV NORMAL SALINE 250 ML IV PRN (23:22)
[2017-12-23] VITALS (69 sets, daily range): BP systolic 66–142; BP diastolic 34–92
--- NOTE | 2017-12-23 | NUR ---
Levophed drip titrated down. No neuro changes.
--- NOTE | 2017-12-23 04:00 | NUR ---
Levophed drip dc'd. BPs monitored closely. Continues to have small mucoid, yellow green stools. Cleaned PRN. Skin care provided.
[2017-12-23 05:04] LABS: BASOPHILS # (AUTO) 0.1 K/uL (0.0-8.0); BASOPHILS % (AUTO) 0.3 % (0.0-2.0); EOSINOPHILS % (AUTO) 0.1 % (0.0-7.0); HEMATOCRIT 30.8 % (36.7-47.1); HEMOGLOBIN 10.7 g/dL (12.5-16.3); LYMPHOCYTES # (AUTO) 0.5 K/uL (20.0-40.0); LYMPHOCYTES % (AUTO) 1.9 % (20.5-51.5); MEAN CORPUSCULAR HEMOGLOBIN 28.5 uug (23.8-33.4); MEAN CORPUSCULAR HGB CONC 35 g/dL (32.5-36.3); MEAN CORPUSCULAR VOLUME 82.1 fL (73.0-96.2); MONOCYTES # (AUTO) 4.1 K/uL (2.0-10.0); MONOCYTES % (AUTO) 15.6 % (0.0-11.0); NEUTROPHILS # (AUTO) 21.5 K/uL (1.8-8.9); NEUTROPHILS % (AUTO) 82.1 % (38.5-71.5); PLATELET COUNT (AUTO) 301 K/uL (152-348); RED BLOOD CELL COUNT(AUTO) 3.75 MIL/uL (4.06-5.63); WHITE BLOOD COUNT (AUTO) 26.2 K/uL (3.6-10.2)
[2017-12-23 05:14] LABS: ALANINE AMINOTRANSFERASE 24 U/L (16-63); ALKALINE PHOSPHATASE 145 U/L (50-136); ASPARTATE AMINOTRANSFERASE 23 U/L (15-37); BILIRUBIN,TOTAL 0.4 mg/dL (0.2-1.0); CARBON DIOXIDE 16 mmol/L (21-32); CHLORIDE 110 mmol/L (98-107); CREATININE 1.8 mg/dL (0.6-1.3); GLUCOSE 137 mg/dL (74-106); MAGNESIUM 2.1 mg/dL (1.8-2.4); PHOSPHOROUS 2.9 mg/dL (2.5-4.9); POTASSIUM 3.2 mmol/L (3.5-5.1); TOTAL PROTEIN, SERUM 4.5 g/dL (6.4-8.2); UREA NITROGEN, BLOOD 64 mg/dL (7-18)
[2017-12-23] MEDS: METRONIDAZOLE 500 MG/NS 100ML 500 MG in PREMIXED 1 EACH IV SCH ×3 (05:31→21:16)
[2017-12-23] MEDS: VANCOMYCIN FOR PO/GT/NG USE PO SCH ×4 (05:31→23:35)
--- NOTE | 2017-12-23 06:21 | NUR ---
Remains on O2 2L NC; sat above 95%. Requires frequent suctioning. SBPs 90'-100's. Still in ST, no episodes of SVT. Contact isolation maintained.
[2017-12-23 07:24] LABS: BAND % (MANUAL) 7 % (0-10); LYMPHOCYTES % (MANUAL) 3 % (20-40); METAMYELOCYTES % 5 % (0-1); MONOCYTES % (MANUAL) 10 % (2-10); MYELOCYTES % 1 % (0-0); NEUTROPHILS % (MANUAL) 74 % (42-75)
[2017-12-23] MEDS ORDERED: POTASSIUM CHLORIDE 20 MEQ TAB.PRT.SR PO ONE (08:00)
[2017-12-23] MEDS ORDERED: POTASSIUM CHLORIDE 20 MEQ POWDER PACKET NG ONE (08:15)
[2017-12-23] MEDS: CALCIUM CARB/VITAMIN D 500MG-200UNITS TABLET PO SCH ×2 (08:23→17:41)
[2017-12-23] MEDS: PANTOPRAZOLE ORAL SUSPENSION 40 MG SUSPDR.PKT GT SCH ×2 (08:23→20:19)
[2017-12-23] MEDS: AMIODARONE HCL 200 MG TABLET PO SCH ×2 (08:23→20:23)
[2017-12-23] MEDS: MEROPENEM 500 MG in IV NORMAL SALINE 50 ML IV SCH ×2 (08:23→20:20)
[2017-12-23] MEDS: PROTEIN SUPPLEMENT (PROSTAT) 30 ML LIQUID PO SCH (08:24)
[2017-12-23] MEDS: Z GUARD REMEDY PASTE 57 GM TUBE TOP SCH ×2 (08:28→20:24)
[2017-12-23] MEDS: MUPIROCIN 2% OINT 22 GM TUBE NS SCH ×2 (08:29→20:24)
[2017-12-23] MEDS: MEGESTROL ACETATE 400 MG/10 ML LIQUID UDC PO SCH (08:32)
[2017-12-23] MEDS: FINASTERIDE 5 MG TABLET PO SCH (08:32)
[2017-12-23] MEDS: IPRATROPIUM BROMIDE 0.5 MG/2.5 ML NEBU NEB PRN ×2 (08:34→11:37)
[2017-12-23] MEDS ORDERED: MORPHINE SULFATE 2 MG/1 ML DISP.SYRIN IV PRN (11:15)
[2017-12-23] MEDS: MORPHINE SULFATE 4 MG/1 ML DISP.SYRIN IV PRN (11:37)
--- NOTE | 2017-12-23 14:18 | NUR ---
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 PT HAD BEEN HAVING LOOSE STOOLS PER NURSING STAFF. RECOMMENDATIONS MADE FOR WOUND CARE AND SKIN PROTECTION. DISCUSSED WITH NURSING STAFF. [facility]. WILL SEE PRN. SMALLS IN AGREEMENT WITH PLAN OF CARE. Addendum: 12/23/17 at 1420 by ANNALISE TIMMONS RN Amended: Links added.
--- NOTE | 2017-12-23 17:11 | NUR ---
0900 HANDBAG FRAMER Renny was present and saw patient. HANDBAG FRAMER expressed concern for patient being full code with poor prognosis. Braille Typist Geeta Woods and HANDBAG FRAMER Renny communicated the concern with each other and decided to follow up with the concern. See notes for details and orders. [address] Carrasco rounded and assessed patient. No new orders or changes. 14:[address] Moreno assessed patient no new orders or changes. HANDBAG FRAMER Janae Austin assessed patient at 1700 and expressed concern for patient having possible pancolitis and necrotic bowel tissue. HANDBAG FRAMER would like Surgery consult and to have patient remain NPO and on low intermittent suction.
[2017-12-23] MEDS: NOREPINEPHRINE BITARTRATE 8 MG in IV DEXTROSE 5% 500 ML IV PRN (19:31)
--- NOTE | 2017-12-23 20:00 | NUR ---
RECEIVED PT. VERBALLY NONRESPONSIVE, OPENS HIS EYES TO VERBAL STIMULI. ON O2 @ 2L NC W/ O2 SAT O2 96%. ON LEVOPHED DRIP @ 3MCQ/MIN ON MARIBETH PICC LINE. NS @ 10CC/HR FOR IVPB MEDS. NGT ON L NARE TO LOW SUCTION W/ MIN DRAINAGE NOTED. C-SCOPE S-TACH. AFEBRILE. SUCTIONED INTRANASALLY W/ THICK TANNISH MUCOUS MOD. AMT. REPOSITIONED PT W/ HOB ELEVATED.
[2017-12-23] MEDS: TAMSULOSIN HCL 0.4 MG CAP.SR.24H PO SCH (20:21)
[2017-12-23] MEDS: [UNRECOGNIZED DRUG - OTHER] PR SCH ×2 (21:17)
[2017-12-23] MEDS ORDERED: [UNRECOGNIZED DRUG - OTHER] RC SCH (22:00)
--- NOTE | 2017-12-23 22:00 | NUR ---
VANCOMYCIN RETENSION ENEMA GIVEN.
--- NOTE | 2017-12-23 23:00 | NUR ---
HS CARE DONE. ORAL CARE DONE. Z-GUARD CREAM APPLIED TO SACRAL AREA.. REPOSITIONED ON HIS SIDE W/ HOB ELEVATED.
[2017-12-24] VITALS (85 sets, daily range): BP systolic 69–131; BP diastolic 29–90
[2017-12-24] MEDS: MORPHINE SULFATE 4 MG/1 ML DISP.SYRIN IV PRN ×4 (00:09→22:27)
--- NOTE | 2017-12-24 05:00 | NUR ---
AM CARE DONE, SHAVED. ORAL CARE DONE. SUCTIONED INTRANASALLY & ORALLY. REPOSITIONED ON HIS SIDE W/. HOB ELEVATED.
[2017-12-24 05:08] LABS: BASOPHILS # (AUTO) 0.1 K/uL (0.0-8.0); EOSINOPHILS % (AUTO) 0.1 % (0.0-7.0)
[2017-12-24 05:10] LABS: BASOPHILS % (AUTO) 0.4 % (0.0-2.0); HEMATOCRIT 32.4 % (36.7-47.1); LYMPHOCYTES # (AUTO) 0.6 K/uL (20.0-40.0); LYMPHOCYTES % (AUTO) 1.8 % (20.5-51.5); MEAN CORPUSCULAR HEMOGLOBIN 27.8 uug (23.8-33.4); MEAN CORPUSCULAR HGB CONC 34 g/dL (32.5-36.3); MEAN CORPUSCULAR VOLUME 81.5 fL (73.0-96.2); MONOCYTES # (AUTO) 2.7 K/uL (2.0-10.0); MONOCYTES % (AUTO) 8.1 % (0.0-11.0); NEUTROPHILS # (AUTO) 29.5 K/uL (1.8-8.9); NEUTROPHILS % (AUTO) 89.6 % (38.5-71.5); PLATELET COUNT (AUTO) 346 K/uL (152-348); RED BLOOD CELL COUNT(AUTO) 3.97 MIL/uL (4.06-5.63)
[2017-12-24 05:19] LABS: WHITE BLOOD COUNT (AUTO) 32.9 K/uL (3.6-10.2)
[2017-12-24] MEDS: IV NORMAL SALINE 250 ML IV PRN (05:19)
[2017-12-24] MEDS: METRONIDAZOLE 500 MG/NS 100ML 500 MG in PREMIXED 1 EACH IV SCH ×3 (05:21→22:01)
[2017-12-24] MEDS: VANCOMYCIN FOR PO/GT/NG USE PO SCH ×3 (05:21→18:12)
[2017-12-24] MEDS: [UNRECOGNIZED DRUG - OTHER] PR SCH ×6 (05:21→22:02)
[2017-12-24 05:28] LABS: ALANINE AMINOTRANSFERASE 21 U/L (16-63); ALKALINE PHOSPHATASE 139 U/L (50-136); ASPARTATE AMINOTRANSFERASE 19 U/L (15-37); BILIRUBIN,TOTAL 0.5 mg/dL (0.2-1.0); CARBON DIOXIDE 14 mmol/L (21-32); CHLORIDE 110 mmol/L (98-107); CREATININE 1.8 mg/dL (0.6-1.3); GLUCOSE 195 mg/dL (74-106); MAGNESIUM 2.2 mg/dL (1.8-2.4); PHOSPHOROUS 3.8 mg/dL (2.5-4.9); POTASSIUM 3.7 mmol/L (3.5-5.1); TOTAL PROTEIN, SERUM 4.8 g/dL (6.4-8.2); UREA NITROGEN, BLOOD 68 mg/dL (7-18)
[2017-12-24 05:46] LABS: BAND % (MANUAL) 2 % (0-10); MONOCYTES % (MANUAL) 6 % (2-10); NEUTROPHILS % (MANUAL) 92 % (42-75)
[2017-12-24] MEDS: IPRATROPIUM BROMIDE 0.5 MG/2.5 ML NEBU NEB PRN (07:21)
--- NOTE | 2017-12-24 07:30 | NUR ---
report received from Sabina COLE, 87 yr old male, admitted on 12/18/17 for sepsis and UTI, remains in CCU status, on levophed drip at 10mcg/min. PICC line is intact via left upper arm. IV tko infusing. patient is lethargic but restless, Moaning most of the time.abdomen is distended with very hypoactive bowel sounds. no bm at present. lungs rales and rhonchi. o2 at 2 liters nasal cannula. zhu catheter intact, urine is scanty alesia.ekg is sinus tachycardia. dvt pumps intact. on air mattress. Addendum: 12/24/17 at 1019 by MATHEW DYKES RN Amended: Links added.
[2017-12-24] MEDS: NOREPINEPHRINE BITARTRATE 8 MG in IV DEXTROSE 5% 500 ML IV PRN (08:30)
[2017-12-24] MEDS: MEROPENEM 500 MG in IV NORMAL SALINE 50 ML IV SCH ×2 (08:31→21:26)
[2017-12-24] MEDS: FINASTERIDE 5 MG TABLET PO SCH (08:51)
[2017-12-24] MEDS: PANTOPRAZOLE ORAL SUSPENSION 40 MG SUSPDR.PKT GT SCH ×2 (08:51→21:24)
[2017-12-24] MEDS: PROTEIN SUPPLEMENT (PROSTAT) 30 ML LIQUID PO SCH (08:51)
[2017-12-24] MEDS: MEGESTROL ACETATE 400 MG/10 ML LIQUID UDC PO SCH (08:52)
[2017-12-24] MEDS: CALCIUM CARB/VITAMIN D 500MG-200UNITS TABLET PO SCH ×2 (08:52→16:46)
[2017-12-24] MEDS: AMIODARONE HCL 200 MG TABLET PO SCH ×2 (08:56→21:25)
[2017-12-24] MEDS: Z GUARD REMEDY PASTE 57 GM TUBE TOP SCH ×2 (08:57→21:25)
[2017-12-24] MEDS ORDERED: TPN/PPN PER PHARMACY IV PRN (09:00)
--- NOTE | 2017-12-24 09:00 | NUR ---
seen by dr Henry. no orders received. Addendum: 12/24/17 at 1244 by MATHEW DYKES RN Amended: Evens added. Addendum: 12/24/17 at 1246 by MATHEW DYKES RN Amended: Evens added.
[2017-12-24] MEDS: MUPIROCIN 2% OINT 22 GM TUBE NS SCH ×2 (09:22→21:26)
--- NOTE | 2017-12-24 11:00 | NUR ---
haily by dr espinal. no orders received. Addendum: 12/24/17 at 1246 by MAHTEW DYKES RN Amended: Links added.
[2017-12-24] MEDS: LORAZEPAM 2 MG/1 ML VIAL IV PRN (11:20)
--- NOTE | 2017-12-24 11:20 | NUR ---
medicated for restlessness Addendum: 12/24/17 at 1844 by MATHEW DYKES RN Amended: Evens added. Addendum: 12/24/17 at 1845 by MATHEW DYKES RN Amended: Evens added.
--- NOTE | 2017-12-24 11:35 | NUR ---
report given to Claudio RN Addendum: 12/24/17 at 1239 by MATHEW DYKES RN Amended: Links added.
--- NOTE | 2017-12-24 12:05 | NUR ---
care assumed. Addendum: 12/24/17 at 1241 by MATHEW DYKES RN Amended: Links added.
--- NOTE | 2017-12-24 14:00 | NUR ---
seen by Janae Leonardo for GI. keep bowel rest, no tube fdg at present. Addendum: 12/24/17 at 1642 by MATHEW DYKES RN Amended: Links added. Addendum: 12/24/17 at 1643 by MATHEW DYKES RN Amended: Links added. Addendum: 12/24/17 at 1645 by MATHEW DYKES RN Amended: Links added.
--- NOTE | 2017-12-24 14:50 | NUR ---
medicated for generalized discomfort Addendum: 12/24/17 at 1845 by MATHEW DYKES RN Amended: Links added.
--- NOTE | 2017-12-24 15:00 | NUR ---
seen by dr Ramos. will try to switch to neosyneophrine drip secondary to tachycardia. Addendum: 12/24/17 at 1643 by MATHEW DYKES RN Amended: Links added. Addendum: 12/24/17 at 1645 by MATHEW DYKES RN Amended: Links added.
[2017-12-24] MEDS ORDERED: PHENYLEPHRINE IV 80 MG in IV DEXTROSE 5% 250 ML IV PRN (15:45)
[2017-12-24] MEDS: PHENYLEPHRINE IV 80 MG in IV DEXTROSE 5% 250 ML IV PRN (15:54)
--- NOTE | 2017-12-24 16:45 | NUR ---
seen by TANIA chappell. condition report given. Addendum: 12/24/17 at 1645 by MATHEW DYKES RN Amended: Links added.
--- NOTE | 2017-12-24 17:46 | NUR ---
Clinical Pharmacy Note: TPN per Pharmacy Subjective: Patient has pancolitis per GI (Donald Austin) notes. GI recommends a period of bowel rest- r/o toxic ashish colon vs bowel ischemia. The patient starts on TPN to meet nutrional needs until feeding tube or feeding can be utilized to meet nutrional needs with tube feeding. Credit Union Field Examiner recommendation: Plan to start TPN. Patient with PICC line. Recommend TPN D10%+AA4.5% @ 70 ml/hr + IL20% 250 ml. This would provide 1373 kcal, 76 gm protein. Meets: 75% of low end of est. kcal needs and 86% of low end of est. protein needs. Objective: Labs: Na+ 141 , K+ 3.7, Cl 110, CO2 14, BUN 68, Scr 1.8 Glucose 195 Ca++ 7.8 (corrected Ca++=9.5) Albumin 1.6, Mg++ 2.2, Phos 3.8 Triglycerides 284, Chol 113, LDL 33, HDL 12 WBC 32.9 Temp 96 F Assessment/Plan: 1) Will start the TPN formula (bag #1) D10%+AA4.5% at rate of 50 ml/hr of today with goal rate of 70ml/hr (caution: fluid overload per MD note), but will add 20 mEq/l the NaCl, 20 mEq/l Na acetate, 3 mmole/l kphos and 10 mEq/ l KCl, MVI 10ml per day. Add trace elements 1ml to one bag per day when available, continue Intralipid 20% 250ml IVPB per day. Add Accu check q8hr x24hrs only (call MD for BS of > 300). Labs ordered for am. 2) TANIA Pike agreed to dc protein po supplement & Megace. 3) Per TANIA Pike continue oscal with vitamin D bid. 4) Neosynephrine drip is already quadruple concentration. Levophed drip is on hold for now but RN is aware to change to double concentration if needed since patient in fluid overload per MD note
--- NOTE | 2017-12-24 18:42 | NUR ---
1700 pm care done including wound care, PIcc line dressing changed, zhu catheter irrigated, no clots no sediments seen. Coco Scottygger applied to warm patient. all day was subnormal themp. urine output total 175 ml, ngt output 200ml. flexiseal left intact to avoid traumatic in and out insertion.vanco enema q 8hrs. Addendum: 12/24/17 at 1841 by MATHEW DYKES RN Amended: Links added. Addendum: 12/24/17 at 1843 by MATHEW DYKES RN Amended: Links added. Addendum: 12/24/17 at 1845 by MATHEW DYKES RN Amended: Links added.
[2017-12-24] MEDS ORDERED: MISCELLANEOUS MED XX PRN (18:45)
--- NOTE | 2017-12-24 19:31 | NUR ---
report given to Selvin Addendum: 12/24/17 at 1931 by MATHEW DYKES RN Amended: Links added.
--- NOTE | 2017-12-24 19:45 | NUR ---
KAILEE ZAMORA PRISON KEEPER, CALLED RE: CT SCAN OF ABDOMEN/PELVIS W/ CONTRAST W/ BUN-68/ CREATININE-1.8, KAILEE ZAMORA STATED ITS OK.
--- NOTE | 2017-12-24 20:00 | NUR ---
RECEIVED PT. REMAINS VERBALLY RESPONSIVE, OPENS HIS EYES TO NOXIOUS STIMULI. ON O2 L NC W/ O2 SAT OF 97%. ON NEOSYNEPHRINE DRIP @ 110MCQ/MIN VIA PICC LINE ON MARIBETH. NS @ 10 CC/JHR FOR IVPB MEDS. TEMP-98.8, REMOVED BEAR HUGGER BLANKET. REPOSITIONED ON HIS SIDE W/ HOB ELEVATED.
[2017-12-24] MEDS ORDERED: IOHEXOL 300MG/ML 100 ML INFUS..BTL ONE (20:14)
[2017-12-24] MEDS ORDERED: SWABABLE VALVE TRANSFER SET EA MC ONE (20:14)
[2017-12-24] MEDS ORDERED: NORMAL SALINE FLUSH 10 ML DISP.SYRIN ONE (20:14)
[2017-12-24] MEDS ORDERED: IV NORMAL SALINE 250 ML IV ONE (20:14)
--- NOTE | 2017-12-24 20:45 | NUR ---
PT TO CT SCAN OF ABDOMEN/PELVIS VIA BED ON MONITOR.
[2017-12-24] MEDS ORDERED: SODIUM ACETATE IV PRN ×7 (21:00)
[2017-12-24] MEDS ORDERED: IV FAT EMULSIONS 20% 250 ML IV SCH (21:00)
[2017-12-24] MEDS ORDERED: SODIUM CHLORIDE IV PRN ×7 (21:00)
[2017-12-24] MEDS ORDERED: [UNRECOGNIZED DRUG - OTHER] IV PRN ×7 (21:00)
--- NOTE | 2017-12-24 21:15 | NUR ---
BACK TO , ATTACHED TO BEDSIDE MONITORING.
[2017-12-24] MEDS: TAMSULOSIN HCL 0.4 MG CAP.SR.24H PO SCH (21:25)
[2017-12-24] MEDS: BLOOD SUGAR DIAGNOSTIC 1 EACH STRIP VI SCH (22:10)
--- NOTE | 2017-12-24 22:27 | NUR ---
MEDICATED W/ MORPHINE 1MG IVP FOR PAIN. V/S STABLE.
--- NOTE | 2017-12-24 23:00 | NUR ---
HS CARE DONE. REPOSITIONED W/ HOB ELEVATED.
[2017-12-25] VITALS (74 sets, daily range): BP systolic 79–131; BP diastolic 39–89
[2017-12-25] MEDS: VANCOMYCIN FOR PO/GT/NG USE PO SCH ×5 (00:01→23:09)
[2017-12-25] MEDS: IPRATROPIUM BROMIDE 0.5 MG/2.5 ML NEBU NEB PRN ×2 (01:06→20:52)
[2017-12-25] MEDS: MORPHINE SULFATE 4 MG/1 ML DISP.SYRIN IV PRN ×3 (03:41→21:00)
[2017-12-25] MEDS: PHENYLEPHRINE IV 80 MG in IV DEXTROSE 5% 250 ML IV PRN ×2 (04:11→22:38)
--- NOTE | 2017-12-25 05:00 | NUR ---
AM CARE DONE. ORAL CARE DONE. SUCTIONED & REPOSITIONED.
[2017-12-25 05:20] LABS: EOSINOPHILS % (AUTO) 0.1 % (0.0-7.0); HEMOGLOBIN 11.4 g/dL (12.5-16.3); NEUTROPHILS # (AUTO) 26.8 K/uL (1.8-8.9)
[2017-12-25 05:21] LABS: BASOPHILS # (AUTO) 0.1 K/uL (0.0-8.0); BASOPHILS % (AUTO) 0.3 % (0.0-2.0); LYMPHOCYTES # (AUTO) 3.8 K/uL (20.0-40.0); LYMPHOCYTES % (AUTO) 11.8 % (20.5-51.5); MEAN CORPUSCULAR HEMOGLOBIN 30.1 uug (23.8-33.4); MEAN CORPUSCULAR HGB CONC 37 g/dL (32.5-36.3); MEAN CORPUSCULAR VOLUME 82.2 fL (73.0-96.2); MONOCYTES # (AUTO) 1.8 K/uL (2.0-10.0); MONOCYTES % (AUTO) 5.5 % (0.0-11.0); NEUTROPHILS % (AUTO) 82.3 % (38.5-71.5); PLATELET COUNT (AUTO) 341 K/uL (152-348); RED BLOOD CELL COUNT(AUTO) 3.77 MIL/uL (4.06-5.63)
[2017-12-25 05:27] LABS: CHLORIDE 110 mmol/L (98-107); CREATININE 1.8 mg/dL (0.6-1.3); GLUCOSE 224 mg/dL (74-106); MAGNESIUM 2.1 mg/dL (1.8-2.4); PHOSPHOROUS 3.6 mg/dL (2.5-4.9); POTASSIUM 3.5 mmol/L (3.5-5.1); UREA NITROGEN, BLOOD 63 mg/dL (7-18)
[2017-12-25 05:28] LABS: WHITE BLOOD COUNT (AUTO) 32.5 K/uL (3.6-10.2)
[2017-12-25] MEDS: [UNRECOGNIZED DRUG - OTHER] PR SCH ×6 (05:37→21:03)
[2017-12-25] MEDS: METRONIDAZOLE 500 MG/NS 100ML 500 MG in PREMIXED 1 EACH IV SCH ×3 (05:37→21:02)
[2017-12-25 05:38] LABS: CARBON DIOXIDE 13 mmol/L (21-32)
[2017-12-25] MEDS: BLOOD SUGAR DIAGNOSTIC 1 EACH STRIP VI SCH ×4 (06:06→23:16)
[2017-12-25 06:29] LABS: BAND % (MANUAL) 9 % (0-10); LYMPHOCYTES % (MANUAL) 12 % (20-40); METAMYELOCYTES % 4 % (0-1); MONOCYTES % (MANUAL) 4 % (2-10); MYELOCYTES % 6 % (0-0); NEUTROPHILS % (MANUAL) 63 % (42-75)
[2017-12-25] MEDS: IV NORMAL SALINE 250 ML IV PRN (06:37)
[2017-12-25] MEDS: MEROPENEM 500 MG in IV NORMAL SALINE 50 ML IV SCH (08:43)
[2017-12-25] MEDS: MUPIROCIN 2% OINT 22 GM TUBE NS SCH ×2 (08:44→20:53)
[2017-12-25] MEDS: FINASTERIDE 5 MG TABLET PO SCH (08:46)
[2017-12-25] MEDS: CALCIUM CARB/VITAMIN D 500MG-200UNITS TABLET PO SCH ×2 (08:46→17:48)
[2017-12-25] MEDS: AMIODARONE HCL 200 MG TABLET PO SCH ×2 (08:47→20:10)
[2017-12-25] MEDS: PANTOPRAZOLE ORAL SUSPENSION 40 MG SUSPDR.PKT GT SCH ×2 (08:47→20:10)
[2017-12-25] MEDS: Z GUARD REMEDY PASTE 57 GM TUBE TOP SCH ×2 (09:56→20:10)
[2017-12-25] MEDS: DIFICID 200 MG TABLET PO SCH ×2 (13:33→20:10)
--- NOTE | 2017-12-25 14:30 | NUR ---
ANTWAN MARIN CAME TO SEE PATIENT. INFORMED THAT THEY WILL BE HAVING FAMILY MEETING LATER. MANAGED TO TAKE PART IN THE MEETING WITH FINA MARIN. BOTH SPOKE ABOUT PROGNOSIS AND PLAN
--- NOTE | 2017-12-25 16:00 | NUR ---
FINA HAT BODY SORTER HAD FAMILY MEETING AND PATIENT WILL BE DNR DNI, CHANGE IN CODE STATUS WILL BE DONE PER FINA.
[2017-12-25] MEDS: MICAFUNGIN SODIUM 100 MG in IV NORMAL SALINE 100 ML IV SCH (16:19)
--- NOTE | 2017-12-25 16:21 | NUR ---
Clinical Pharmacy Note: TPN per Pharmacy Subjective: Patient has pancolitis per GI (Donald Austin) notes. GI recommends a period of bowel rest- r/o toxic ashish colon vs bowel ischemia. The patient starts on TPN to meet nutrional needs until feeding tube or feeding can be utilized to meet nutrional needs with tube feeding. Piece Maker recommendation: Plan to continue TPN. Patient with PICC line. Recommend TPN D10%+AA4.5% @ 70 ml/hr + IL20% 250 ml. This would provide 1373 kcal, 76 gm protein. Meets: 75% of low end of est. kcal needs and 86% of low end of est. protein needs. Objective: Labs: Na+ 138 , K+ 3.5, Cl 110, CO2 13, BUN 63, Scr 1.8 Glucose 224 Ca++ 6.8 (corrected Ca++=8.56) Albumin 1.6(12/24), Mg++ 2.1, Phos 3.6 Triglycerides 284(12/24), Chol 113(12/24), LDL 33(12/24), HDL 12(12/24) WBC 32.5 Temp 96 F Assessment/Plan: 1) Will continue the TPN formula (bag #1) D10%+AA4.5% at rate goal rate of 70 ml/hr (caution: fluid overload per MD note), but will add 40 mEq/l Na acetate, 3 mmole/l kphos and 20 mEq/ l KCl, MVI 10ml and Trace elements 1ml per day. Continue Intralipid 20% 250ml IVPB per day. Requested MD to extend accu-check q6hrs x2 more days due to hyperglycemia and increased rate . (call MD for BS of > 300). Labs ordered for am. 2) TANIA Pike agreed to dc protein po supplement & Megace. 3) Per TANIA Pike continue oscal with vitamin D bid. 4) Levophed drip and [place]-synephrine drip is not running now but RN is aware to change to double concentration if needed since patient in fluid overload per MD note
[2017-12-25] MEDS ORDERED: DEXTROSE 50% 50 ML DISP.SYRIN IV PRN (16:45)
[2017-12-25] MEDS ORDERED: POTASSIUM PHOSPHATE MM IV PRN ×7 (17:00)
[2017-12-25] MEDS ORDERED: POTASSIUM CHLORIDE IV PRN ×7 (17:00)
[2017-12-25] MEDS ORDERED: SODIUM ACETATE IV PRN ×7 (17:00)
[2017-12-25] MEDS ORDERED: [UNRECOGNIZED DRUG - OTHER] IV PRN ×7 (17:00)
[2017-12-25] MEDS: INSULIN REGULAR, HUMAN 300 UNIT/3 ML VIAL SQ PRN ×3 (17:47→23:19)
[2017-12-25] MEDS: TAMSULOSIN HCL 0.4 MG CAP.SR.24H PO SCH (20:10)
--- NOTE | 2017-12-25 20:50 | NUR ---
prn pain medication given patient non verbal but noted to be moaning and groaning,restless . see emar .
[2017-12-25] MEDS ORDERED: IV FAT EMULSIONS 20% 250 ML IV SCH (21:00)
--- NOTE | 2017-12-25 21:00 | NUR ---
called karime and notified patient ST 147 sustained , dictated labs ,xray ,H and P , informed patient very congested ,as per GIORGI florence ,to do EKG and to continue to watch for HR to call if HR 160 sustain .
--- NOTE | 2017-12-25 21:37 | NUR ---
patient converted back to SR ,ST 104, informed doctor naman ,hold EKG order for now.
--- NOTE | 2017-12-25 22:00 | NUR ---
vancomycin enema done patient tolerated .abdomen area round and distended no bowel sounds ,npo except for medication via NGT then ngt to low intermittent wall suction .
[2017-12-25] MEDS ORDERED: PHENYLEPHRINE 10 MG/1 ML VIAL ONE (22:37)
--- NOTE | 2017-12-25 22:45 | NUR ---
spoked with JUDICIAL CLERK ta logan,updated with patent condition, made aware patient is back on neosynephrine drip to keep sbp >90 mm/hg .
[2017-12-26] VITALS (56 sets, daily range): BP systolic 88–125; BP diastolic 59–89
[2017-12-26] MEDS: MORPHINE SULFATE 4 MG/1 ML DISP.SYRIN IV PRN ×4 (00:40→21:47)
[2017-12-26] MEDS: BLOOD SUGAR DIAGNOSTIC 1 EACH STRIP VI SCH ×5 (03:18→20:50)
[2017-12-26] MEDS: INSULIN REGULAR, HUMAN 300 UNIT/3 ML VIAL SQ PRN ×6 (03:19→23:59)
--- NOTE | 2017-12-26 04:30 | NUR ---
am care done,changed soiled linens and gown . oral care done ,f/c done .z guard applied to sacral area and bilateral groin .
[2017-12-26 05:15] LABS: EOSINOPHILS # (AUTO) 0.1 K/uL (0.0-0.7); HEMOGLOBIN 12.6 g/dL (12.5-16.3); LYMPHOCYTES # (AUTO) 1.4 K/uL (20.0-40.0)
[2017-12-26] MEDS: VANCOMYCIN FOR PO/GT/NG USE PO SCH ×4 (05:15→23:57)
[2017-12-26] MEDS: [UNRECOGNIZED DRUG - OTHER] PR SCH ×6 (05:15→21:21)
[2017-12-26] MEDS: METRONIDAZOLE 500 MG/NS 100ML 500 MG in PREMIXED 1 EACH IV SCH ×3 (05:15→21:20)
[2017-12-26 05:17] LABS: BASOPHILS # (AUTO) 0.1 K/uL (0.0-8.0); BASOPHILS % (AUTO) 0.3 % (0.0-2.0); EOSINOPHILS % (AUTO) 0.2 % (0.0-7.0); HEMATOCRIT 32.9 % (36.7-47.1); LYMPHOCYTES % (AUTO) 3.9 % (20.5-51.5); MEAN CORPUSCULAR HEMOGLOBIN 32.2 uug (23.8-33.4); MEAN CORPUSCULAR HGB CONC 38 g/dL (32.5-36.3); MONOCYTES # (AUTO) 1.9 K/uL (2.0-10.0); MONOCYTES % (AUTO) 5.4 % (0.0-11.0); NEUTROPHILS # (AUTO) 32.4 K/uL (1.8-8.9); NEUTROPHILS % (AUTO) 90.2 % (38.5-71.5); PLATELET COUNT (AUTO) 313 K/uL (152-348); RED BLOOD CELL COUNT(AUTO) 3.92 MIL/uL (4.06-5.63)
[2017-12-26 05:20] LABS: CARBON DIOXIDE 16 mmol/L (21-32); CHLORIDE 111 mmol/L (98-107); GLUCOSE 251 mg/dL (74-106); MAGNESIUM 1.9 mg/dL (1.8-2.4); PHOSPHOROUS 3.5 mg/dL (2.5-4.9); POTASSIUM 3.8 mmol/L (3.5-5.1); UREA NITROGEN, BLOOD 69 mg/dL (7-18)
[2017-12-26 05:37] LABS: WHITE BLOOD COUNT (AUTO) 35.9 K/uL (3.6-10.2)
[2017-12-26 05:48] LABS: ABG HCO3 9.9 mmol/L; ABG PCO2 24.2 mmHg (35.0-45.0); ABG PH 7.228 (7.350-7.450); ABG PO2 89.9 mmHg (75.0-100.0); ABG SITE RIGHT BRACHIAL; ABG TOTAL HEMOGLOBIN 11.5 G/dL (13.5-18.0); COHb 0.8 % (0.5-1.5); MetHb 0.4 % (0.0-1.5); VENT MODE Nasal Cannula
[2017-12-26 05:59] LABS: CREATININE 1.8 mg/dL (0.6-1.3)
[2017-12-26 06:03] LABS: BAND % (MANUAL) 10 % (0-10); EOSINOPHILS % (MANUAL) 2 % (0-8); LYMPHOCYTES % (MANUAL) 2 % (20-40); METAMYELOCYTES % 14 % (0-1); MYELOCYTES % 2 % (0-0); NEUTROPHILS % (MANUAL) 70 % (42-75)
[2017-12-26] MEDS ORDERED: POTASSIUM PHOSPHATE MM IV PRN ×14 (07:00→21:01)
[2017-12-26] MEDS ORDERED: POTASSIUM CHLORIDE IV PRN ×32 (07:00→21:01)
[2017-12-26] MEDS ORDERED: [UNRECOGNIZED DRUG - OTHER] IV PRN ×5 (07:00)
[2017-12-26] MEDS ORDERED: SODIUM ACETATE IV PRN ×32 (07:00→21:01)
[2017-12-26] MEDS: DIFICID 200 MG TABLET PO SCH ×2 (08:49→20:29)
[2017-12-26] MEDS: PANTOPRAZOLE ORAL SUSPENSION 40 MG SUSPDR.PKT GT SCH ×2 (08:49→20:29)
[2017-12-26] MEDS: CALCIUM CARB/VITAMIN D 500MG-200UNITS TABLET PO SCH ×2 (08:49→20:29)
[2017-12-26] MEDS: FINASTERIDE 5 MG TABLET PO SCH (08:49)
[2017-12-26] MEDS: Z GUARD REMEDY PASTE 57 GM TUBE TOP SCH ×2 (08:50→20:30)
[2017-12-26] MEDS: AMIODARONE HCL 200 MG TABLET PO SCH ×2 (08:50→20:29)
[2017-12-26] MEDS: MUPIROCIN 2% OINT 22 GM TUBE NS SCH ×2 (08:52→20:34)
--- NOTE | 2017-12-26 09:00 | NUR ---
Dr. Moreno in the unit to examine patient, report given see order hx.
--- NOTE | 2017-12-26 10:57 | NUR ---
Cardiology services Dr. Romero in the unit to examine patient, report given.
[2017-12-26] MEDS: LORAZEPAM 2 MG/1 ML VIAL IV PRN (11:56)
--- NOTE | 2017-12-26 12:04 | NUR ---
Joanna Weinberg in the unit to examine pt. full report given.
--- NOTE | 2017-12-26 13:40 | NUR ---
Clinical Pharmacy Note: TPN per Pharmacy Subjective: Patient has pancolitis per GI (Donald Austin) notes. GI recommends a period of bowel rest- r/o toxic ashish colon vs bowel ischemia. The patient starts on TPN to meet nutrional needs until feeding tube or feeding can be utilized to meet nutrional needs with tube feeding on 12/24. Digitizer Operator recommendation: Patient with PICC line. Recommend increase TPN concentration to D20%+AA4.25% @ 60 ml/hr. This would provide 1263 kcal and 71 gm protein. Discussed with pharmacist. - Recommend hold lipids until TAG re-checked Objective: Labs: Na+ 136 , K+ 3.8, Cl 111, CO2 16, BUN 69, Scr 1.8 Glucose 254 Ca++ 6.5 (corrected Ca++=8.26) Albumin 1.8(12/24), Mg++ 1.9 Phos 3.5 Triglycerides 284(12/24), Chol 113(12/24), LDL 33(12/24), HDL 12(12/24) WBC 35.9 Temp 98.5 F Assessment/Plan: Bag #4: 1) Will start the central TPN formula, final concentration D20%+AA4.5% at rate goal rate of 600 ml/hr (per stone unloader recommendation), and will add 50 mEq/l Na acetate, mag sulfate 4 meq/l, calcium gluconate 0.5gm/l, 3 mmole/l kphos and 20 mEq/ l KCl, MVI 10ml and Trace elements 1ml per day. Will hold intralipid per stone unloader recommendation. Plan to check Triglyceride level tomorrow & re-start if ok. Patient continues on mild sliding scale q4hr per MD order Labs ordered for am. 2) TANIA Pike agreed to dc protein po supplement & Megace. 3) Per TANIA Pike continue oscal with vitamin D bid. 4) Levophed drip is not running and Hamilton-synephrine drip is already on quadruple concentration. RN is aware to change to double concentration levophed if needed since patient in fluid overload per MD note Addendum: 12/26/17 at 2054 by JORDY SHERMAN CLINIMIX 20% DEXTROSE 4.25% AMINO ACID UNAVAILABLE. KEEP PATIENT ON 10% 4.25 AT A RATE OF 70ML/HR
[2017-12-26] MEDS ORDERED: [UNRECOGNIZED DRUG - OTHER] IV PRN ×18 (13:45→21:01)
[2017-12-26] MEDS ORDERED: MAGNESIUM SULFATE IV PRN ×18 (13:45→21:01)
[2017-12-26] MEDS: MICAFUNGIN SODIUM 100 MG in IV NORMAL SALINE 100 ML IV SCH (15:54)
--- NOTE | 2017-12-26 19:30 | NUR ---
patient in bed awake but confused . doesn't follow commands ,sr to st on the heart monitor . tolerating 02 nasal cannula at 3 l /min . saturation 100% rr 17.abdomen round and distended no bowel sounds . npo except medication via the NGT . on TPN for nutrition .f/c to bsd .
[2017-12-26] MEDS: TAMSULOSIN HCL 0.4 MG CAP.SR.24H PO SCH (20:30)
[2017-12-26] MEDS ORDERED: [UNRECOGNIZED DRUG - OTHER] IV SCH ×9 (20:45)
[2017-12-26] MEDS ORDERED: SODIUM ACETATE IV SCH ×9 (20:45)
[2017-12-26] MEDS ORDERED: MAGNESIUM SULFATE IV SCH ×9 (20:45)
[2017-12-26] MEDS ORDERED: POTASSIUM CHLORIDE IV SCH ×9 (20:45)
[2017-12-26] MEDS ORDERED: [UNRECOGNIZED DRUG - OTHER] IV PRN ×9 (21:01)
--- NOTE | 2017-12-26 21:47 | NUR ---
noted patient moaning and groaning ,restless . prn pain medication given see emar .turned and reposition and suction via oral and nasal .
[2017-12-27] VITALS (24 sets, daily range): BP systolic 91–124; BP diastolic 56–77
[2017-12-27] MEDS: BLOOD SUGAR DIAGNOSTIC 1 EACH STRIP VI SCH ×6 (04:21→20:08)
[2017-12-27] MEDS: INSULIN REGULAR, HUMAN 300 UNIT/3 ML VIAL SQ PRN ×5 (04:22→20:10)
[2017-12-27 05:08] LABS: EOSINOPHILS # (AUTO) 0.1 K/uL (0.0-0.7); EOSINOPHILS % (AUTO) 0.2 % (0.0-7.0); HEMOGLOBIN 10.5 g/dL (12.5-16.3); MONOCYTES # (AUTO) 1.4 K/uL (2.0-10.0)
[2017-12-27 05:10] LABS: BASOPHILS % (AUTO) 0.1 % (0.0-2.0); HEMATOCRIT 30.9 % (36.7-47.1); LYMPHOCYTES # (AUTO) 1.3 K/uL (20.0-40.0); LYMPHOCYTES % (AUTO) 4.2 % (20.5-51.5); MEAN CORPUSCULAR HEMOGLOBIN 28.3 uug (23.8-33.4); MEAN CORPUSCULAR HGB CONC 34 g/dL (32.5-36.3); MEAN CORPUSCULAR VOLUME 83.8 fL (73.0-96.2); MONOCYTES % (AUTO) 4.6 % (0.0-11.0); NEUTROPHILS # (AUTO) 28.1 K/uL (1.8-8.9); NEUTROPHILS % (AUTO) 90.9 % (38.5-71.5); PLATELET COUNT (AUTO) 258 K/uL (152-348); RED BLOOD CELL COUNT(AUTO) 3.69 MIL/uL (4.06-5.63)
[2017-12-27 05:24] LABS: CARBON DIOXIDE 15 mmol/L (21-32); CHLORIDE 109 mmol/L (98-107); CREATININE 1.7 mg/dL (0.6-1.3); GLUCOSE 209 mg/dL (74-106); MAGNESIUM 1.8 mg/dL (1.8-2.4); PHOSPHOROUS 3.5 mg/dL (2.5-4.9); TRIGLYCERIDES 390 MG/DL (30-150); UREA NITROGEN, BLOOD 75 mg/dL (7-18)
[2017-12-27] MEDS: VANCOMYCIN FOR PO/GT/NG USE PO SCH ×3 (05:25→18:18)
[2017-12-27] MEDS: [UNRECOGNIZED DRUG - OTHER] PR SCH ×6 (05:25→21:55)
[2017-12-27] MEDS: METRONIDAZOLE 500 MG/NS 100ML 500 MG in PREMIXED 1 EACH IV SCH ×3 (05:26→21:55)
[2017-12-27 05:31] LABS: WHITE BLOOD COUNT (AUTO) 30.9 K/uL (3.6-10.2)
[2017-12-27 06:05] LABS: BAND % (MANUAL) 13 % (0-10); LYMPHOCYTES % (MANUAL) 4 % (20-40); METAMYELOCYTES % 3 % (0-1); MONOCYTES % (MANUAL) 3 % (2-10); MYELOCYTES % 2 % (0-0); NEUTROPHILS % (MANUAL) 75 % (42-75)
--- NOTE | 2017-12-27 07:30 | NUR ---
report received from Tadeo COLE, 87 yr old male was admitted on12/18/17 for sepsis, pna, pancolitis. patient is obtunded, wrist restraints intact bilaterally for purposeful movement but too weak to pull any lines out. ngt intact to low suction. abdomen is distended. no audible bowel sounds. zhu catheter intact urine is dark alesia, improved urine output. picc line via right upper arm intact. is receiving tpn at 70ml/hr. and a tko for antibiotics. on contact isolation for cdiff, mrsa nares. also is positive for yeast via resp aspirate.ekg is sinus tach. bp stable, off vasoactive drugs is edematous, peripheral pulse are weak Addendum: 12/27/17 at 0929 by MATHEW DYKES RN Amended: Links added.
--- NOTE | 2017-12-27 08:00 | NUR ---
seen by dr tomas. Addendum: 12/27/17 at 1928 by MATHEW DYKES RN Amended: Evens added. Addendum: 12/27/17 at 1929 by MATHEW DYKES RN Amended: Links added. Addendum: 12/27/17 at 1930 by MATHEW DYKES RN Amended: Links added.
--- NOTE | 2017-12-27 08:50 | NUR ---
3 units humulin r given sq for accucheck 198 Addendum: 12/27/17 at 0850 by MATHEW DYKES RN Amended: Links added.
[2017-12-27 09:23] LABS: ABG BASE EXCESS -10.1 mmol/L; ABG HCO3 13.3 mmol/L; ABG PCO2 22.9 mmHg (35.0-45.0); ABG PH 7.382 (7.350-7.450); ABG PO2 71.5 mmHg (75.0-100.0); ABG SITE RIGHT RADIAL; ABG TOTAL HEMOGLOBIN 10.8 G/dL (13.5-18.0); COHb 0.7 % (0.5-1.5); MetHb 0.3 % (0.0-1.5); O2Hb 93.5 % (94.0-97.0); VENT MODE Nasal Cannula
[2017-12-27] MEDS ORDERED: IV FAT EMULSIONS 20% 250 ML IV PRN (09:30)
[2017-12-27] MEDS: FINASTERIDE 5 MG TABLET PO SCH (09:53)
[2017-12-27] MEDS: CALCIUM CARB/VITAMIN D 500MG-200UNITS TABLET PO SCH ×2 (09:53→18:18)
[2017-12-27] MEDS: PANTOPRAZOLE ORAL SUSPENSION 40 MG SUSPDR.PKT GT SCH ×2 (09:53→20:11)
[2017-12-27] MEDS: AMIODARONE HCL 200 MG TABLET PO SCH ×2 (09:54→20:11)
[2017-12-27] MEDS: DIFICID 200 MG TABLET PO SCH ×2 (09:58→20:11)
[2017-12-27] MEDS: Z GUARD REMEDY PASTE 57 GM TUBE TOP SCH ×2 (10:00→20:11)
--- NOTE | 2017-12-27 10:00 | NUR ---
seen by dr adams orders received Addendum: 12/27/17 at 1922 by MATHEW DYKES RN Amended: Evens added. Addendum: 12/27/17 at 1924 by MATHEW DYKES RN Amended: Evens added. Addendum: 12/27/17 at 1927 by MATHEW DYKES RN Amended: Links added. Addendum: 12/27/17 at 1929 by MATHEW DYKES RN Amended: Links added. Addendum: 12/27/17 at 1930 by MATHEW DYKES RN Amended: Links added.
[2017-12-27] MEDS: MUPIROCIN 2% OINT 22 GM TUBE NS SCH (10:25)
--- NOTE | 2017-12-27 11:00 | NUR ---
seen by TANIA Kauffman orders received. Addendum: 12/27/17 at 1924 by MATHEW DYKES RN Amended: Links added. Addendum: 12/27/17 at 1927 by MATHEW DYKES RN Amended: Links added. Addendum: 12/27/17 at 1928 by MATHEW DYKES RN Amended: Links added. Addendum: 12/27/17 at 1930 by MATHEW DYKES RN Amended: Links added.
[2017-12-27] MEDS: IV FAT EMULSIONS 20% 250 ML IV PRN ×2 (11:41→13:05)
[2017-12-27] MEDS: IV NORMAL SALINE 250 ML IV PRN (13:25)
[2017-12-27] MEDS ORDERED: POTASSIUM CHLORIDE IV SCH ×7 (14:00)
[2017-12-27] MEDS ORDERED: MAGNESIUM SULFATE IV SCH ×7 (14:00)
[2017-12-27] MEDS ORDERED: SODIUM ACETATE IV SCH ×7 (14:00)
[2017-12-27] MEDS ORDERED: [UNRECOGNIZED DRUG - OTHER] IV SCH ×7 (14:00)
[2017-12-27] MEDS: MICAFUNGIN SODIUM 100 MG in IV NORMAL SALINE 100 ML IV SCH (14:52)
--- NOTE | 2017-12-27 15:28 | NUR ---
Spoke to pharmacistAlva concerning patient TPN Pt's Triglyceride this am 390H, discussed with pharmacist and agreed to infuse IL 125ml instead of 250ml. Will recheck Triglyceride am tomorrow and adjust IL as needed Previous RD changed TPN rate from 70ml/hr to 60ml/hr dues to edematous: Previous recommendation: D20%+AA4.25% @ 60 ml/hr. This would provide 1263 kcal and 71 gm protein However, Pharmacy currently available with D10%, new recommendation: D10%+AA4.25% @ 60 ml/hr + 125 ml 20% IL. This would provide 985 kcal (54% est calories needs at the low end) and 61 gm protein (69% est protein needs at the low end). Will adjust TPN rate when edema status improving. Monitor/Evaluate: - Labs: electrolytes, BG, Alb, BUN/Creat, TAG - GI symptoms - Skin - Fluid status Addendum: 12/27/17 at [address] Amended: Links added.
--- NOTE | 2017-12-27 16:00 | NUR ---
seen by demario song condition report given Addendum: 12/27/17 at 1929 by MATHEW DYKES RN Amended: Evens added. Addendum: 12/27/17 at 1930 by MATHEW DYKES RN Amended: Evens added.
--- NOTE | 2017-12-27 16:32 | NUR ---
Clinical Pharmacy Note: TPN per Pharmacy Subjective: Patient has pancolitis per GI (Donald Austin) notes. GI recommends a period of bowel rest- r/o toxic ashish colon vs bowel ischemia. The patient starts on TPN to meet nutrional needs until feeding tube or feeding can be utilized to meet nutrional needs with tube feeding on 12/24. Cna Pct recommendation: Patient with PICC line. D10%+AA4.25% @ 60 ml/hr + 125 ml 20% IL. This would provide 985 kcal (54% est calories needs at the low end) and 61 gm protein (69% est protein needs at the low end). Will adjust TPN rate when edema status improving. - Recheck TG tomorrow Objective: Labs: Na+ 137 , K+ 4.0, Cl 109, CO2 15, BUN 75, Scr 1.7 Glucose 209 Ca++ 7.0 (corrected Ca++=8.4) Albumin 1.8(12/24), Mg++ 1.8 Phos 3.5 Triglycerides 390, Chol 113(12/24), LDL 33(12/24), HDL 12(12/24) WBC 30.9 Temp 97.8 F Assessment/Plan: Bag #5: 1) Patient was on TPN via central line of final concentration D10%+AA4.5% at rate goal rate of 70 ml/hr, however later changed per general hardware salesperson recommendation to 60ml/hr @1600 d/t worsening edema. Add 60 mEq/l Na acetate, mag sulfate 8 meq/l, calcium gluconate 1 gm/l, 3 mmole/l Naphos and 10 mEq/ l KCl (no MVI, trace elements, will be in next bag). Per general hardware salesperson recommendation, pt receiving 125ml 20% intralipids since TG increasing but pt's nutritional needs much higher than able to provide with current TPN formulation. Plan to check Triglyceride level tomorrow & re-assess with general hardware salesperson. Patient continues on mild sliding scale q4hr per MD order Labs ordered for am. Bag #6 scheduled to start ~0700 tomorrow am will be run at 60ml/hr and contain same electrolytes + MVI 10ml and Trace elements 1ml. 2) TANIA Pike agreed to dc protein po supplement & Megace. 3) Per TANIA Pike continue oscal with vitamin D bid. 4) Levophed drip is not running and Hamilton-synephrine drip is already on quadruple concentration. RN is aware to change to double concentration levophed if needed since patient in fluid overload per MD note
--- NOTE | 2017-12-27 16:56 | NUR ---
4 units humulin given sq for accucheck 212 Addendum: 12/27/17 at 1656 by MATHEW DYKES RN Amended: Links added.
[2017-12-27] MEDS: LORAZEPAM 2 MG/1 ML VIAL IV PRN (17:20)
--- NOTE | 2017-12-27 18:00 | NUR ---
seen by demario howard condition report given Addendum: 12/27/17 at 1930 by MATHEW DYKES RN Amended: Links added.
[2017-12-27] MEDS: TAMSULOSIN HCL 0.4 MG CAP.SR.24H PO SCH (20:11)
[2017-12-28] VITALS (24 sets, daily range): BP systolic 93–112; BP diastolic 53–71
--- NOTE | 2017-12-28 00:01 | NUR ---
Remains lethargic / non-verbal. Remains off vasopressors. No healthcare provider; or, family contact.
[2017-12-28] MEDS: VANCOMYCIN FOR PO/GT/NG USE PO SCH ×5 (00:18→23:59)
[2017-12-28] MEDS: BLOOD SUGAR DIAGNOSTIC 1 EACH STRIP VI SCH ×6 (00:29→19:54)
[2017-12-28] MEDS: INSULIN REGULAR, HUMAN 300 UNIT/3 ML VIAL SQ PRN ×6 (00:30→19:54)
[2017-12-28] MEDS ORDERED: MAGNESIUM SULFATE IV SCH ×15 (03:00→20:00)
[2017-12-28] MEDS ORDERED: POTASSIUM CHLORIDE IV SCH ×9 (03:00)
[2017-12-28] MEDS ORDERED: [UNRECOGNIZED DRUG - OTHER] IV SCH ×9 (03:00)
[2017-12-28] MEDS ORDERED: SODIUM ACETATE IV SCH ×15 (03:00→20:00)
[2017-12-28 04:49] LABS: EOSINOPHILS # (AUTO) 0.1 K/uL (0.0-0.7); EOSINOPHILS % (AUTO) 0.2 % (0.0-7.0); HEMOGLOBIN 10.4 g/dL (12.5-16.3); LYMPHOCYTES # (AUTO) 1.1 K/uL (20.0-40.0)
[2017-12-28 04:50] LABS: BASOPHILS # (AUTO) 0.1 K/uL (0.0-8.0); BASOPHILS % (AUTO) 0.4 % (0.0-2.0); HEMATOCRIT 30.1 % (36.7-47.1); LYMPHOCYTES % (AUTO) 3.7 % (20.5-51.5); MEAN CORPUSCULAR HEMOGLOBIN 28.9 uug (23.8-33.4); MEAN CORPUSCULAR HGB CONC 35 g/dL (32.5-36.3); MEAN CORPUSCULAR VOLUME 83.8 fL (73.0-96.2); MONOCYTES # (AUTO) 1.2 K/uL (2.0-10.0); MONOCYTES % (AUTO) 3.9 % (0.0-11.0); NEUTROPHILS % (AUTO) 91.8 % (38.5-71.5); PLATELET COUNT (AUTO) 220 K/uL (152-348); RED BLOOD CELL COUNT(AUTO) 3.59 MIL/uL (4.06-5.63)
[2017-12-28 05:04] LABS: CARBON DIOXIDE 15 mmol/L (21-32); CHLORIDE 113 mmol/L (98-107); CREATININE 1.6 mg/dL (0.6-1.3); GLUCOSE 169 mg/dL (74-106); PHOSPHOROUS 3.3 mg/dL (2.5-4.9); POTASSIUM 3.9 mmol/L (3.5-5.1); UREA NITROGEN, BLOOD 74 mg/dL (7-18)
[2017-12-28 05:11] LABS: WHITE BLOOD COUNT (AUTO) 30.5 K/uL (3.6-10.2)
[2017-12-28] MEDS: METRONIDAZOLE 500 MG/NS 100ML 500 MG in PREMIXED 1 EACH IV SCH ×3 (05:55→22:08)
[2017-12-28] MEDS: [UNRECOGNIZED DRUG - OTHER] PR SCH ×6 (05:56→22:08)
[2017-12-28 06:23] LABS: BAND % (MANUAL) 12 % (0-10); LYMPHOCYTES % (MANUAL) 1 % (20-40); METAMYELOCYTES % 5 % (0-1); MONOCYTES % (MANUAL) 1 % (2-10); MYELOCYTES % 1 % (0-0); NEUTROPHILS % (MANUAL) 80 % (42-75)
[2017-12-28] MEDS: IV NORMAL SALINE 250 ML IV PRN (06:33)
[2017-12-28] MEDS: LORAZEPAM 2 MG/1 ML VIAL IV PRN (07:36)
[2017-12-28] MEDS: PANTOPRAZOLE ORAL SUSPENSION 40 MG SUSPDR.PKT GT SCH ×2 (08:35→20:24)
[2017-12-28] MEDS: AMIODARONE HCL 200 MG TABLET PO SCH ×2 (08:35→20:24)
[2017-12-28] MEDS: DIFICID 200 MG TABLET PO SCH ×2 (08:36→20:24)
[2017-12-28] MEDS: CALCIUM CARB/VITAMIN D 500MG-200UNITS TABLET PO SCH ×2 (08:36→17:11)
[2017-12-28] MEDS: FINASTERIDE 5 MG TABLET PO SCH (08:36)
[2017-12-28] MEDS: Z GUARD REMEDY PASTE 57 GM TUBE TOP SCH ×2 (08:43→20:25)
--- NOTE | 2017-12-28 11:30 | NUR ---
Cardiology services, Dr. Martins in the unit to examine pt. report given.
--- NOTE | 2017-12-28 11:30 | NUR ---
pulmonary services int he unit to examine pt. full report given no orders received. informed that wean of oxygen and tolerating it well.
--- NOTE | 2017-12-28 12:00 | NUR ---
Attending Lenard Marshall [facility] in the unit to examine pt. as stated by her awaiting for pt's son's decision to place pt. on palliative care.
--- NOTE | 2017-12-28 13:00 | NUR ---
Nephrology services in the unit to examine pt. report given. see order hx.
--- NOTE | 2017-12-28 13:15 | NUR ---
N. P. GI services in the unit to examine patient.
[2017-12-28] MEDS: MICAFUNGIN SODIUM 100 MG in IV NORMAL SALINE 100 ML IV SCH (14:18)
[2017-12-28] MEDS ORDERED: CALCIUM GLUCONATE IV SCH ×6 (20:00)
[2017-12-28] MEDS ORDERED: [UNRECOGNIZED DRUG - OTHER] IV SCH ×6 (20:00)
--- NOTE | 2017-12-28 20:00 | NUR ---
Resumed Coco Miller: temp 95.7
[2017-12-28] MEDS: TAMSULOSIN HCL 0.4 MG CAP.SR.24H PO SCH (20:24)
[2017-12-28] MEDS: MORPHINE SULFATE 4 MG/1 ML DISP.SYRIN IV PRN (20:38)
--- NOTE | 2017-12-28 22:00 | NUR ---
Resumed O2 2L N/C: SaO2 92%. NT sx by RT.
[2017-12-29] VITALS (16 sets, daily range): BP systolic 85–124; BP diastolic 45–68
[2017-12-29] MEDS: INSULIN REGULAR, HUMAN 300 UNIT/3 ML VIAL SQ PRN ×6 (00:02→21:07)
[2017-12-29] MEDS: LORAZEPAM 2 MG/1 ML VIAL IV PRN (02:10)
[2017-12-29] MEDS: BLOOD SUGAR DIAGNOSTIC 1 EACH STRIP VI SCH ×6 (04:14→21:00)
[2017-12-29 05:01] LABS: BASOPHILS # (AUTO) 0.1 K/uL (0.0-8.0); BASOPHILS % (AUTO) 0.5 % (0.0-2.0); EOSINOPHILS # (AUTO) 0.1 K/uL (0.0-0.7); EOSINOPHILS % (AUTO) 0.2 % (0.0-7.0); HEMATOCRIT 29.5 % (36.7-47.1); HEMOGLOBIN 9.9 g/dL (12.5-16.3); LYMPHOCYTES # (AUTO) 0.8 K/uL (20.0-40.0); LYMPHOCYTES % (AUTO) 2.7 % (20.5-51.5); MEAN CORPUSCULAR HEMOGLOBIN 28.3 uug (23.8-33.4); MEAN CORPUSCULAR HGB CONC 34 g/dL (32.5-36.3); MEAN CORPUSCULAR VOLUME 84.1 fL (73.0-96.2); MONOCYTES # (AUTO) 1.3 K/uL (2.0-10.0); MONOCYTES % (AUTO) 4.5 % (0.0-11.0); NEUTROPHILS # (AUTO) 26.4 K/uL (1.8-8.9); NEUTROPHILS % (AUTO) 92.1 % (38.5-71.5); PLATELET COUNT (AUTO) 198 K/uL (152-348); RED BLOOD CELL COUNT(AUTO) 3.51 MIL/uL (4.06-5.63)
[2017-12-29 05:12] LABS: CARBON DIOXIDE 17 mmol/L (21-32); CHLORIDE 113 mmol/L (98-107); CREATININE 1.5 mg/dL (0.6-1.3); GLUCOSE 184 mg/dL (74-106); MAGNESIUM 2.2 mg/dL (1.8-2.4); PHOSPHOROUS 4.3 mg/dL (2.5-4.9); UREA NITROGEN, BLOOD 75 mg/dL (7-18)
[2017-12-29 05:22] LABS: WHITE BLOOD COUNT (AUTO) 28.6 K/uL (3.6-10.2)
[2017-12-29] MEDS: METRONIDAZOLE 500 MG/NS 100ML 500 MG in PREMIXED 1 EACH IV SCH ×3 (05:49→21:12)
[2017-12-29] MEDS: IV NORMAL SALINE 250 ML IV PRN (05:50)
[2017-12-29] MEDS: VANCOMYCIN FOR PO/GT/NG USE PO SCH ×3 (05:51→17:09)
[2017-12-29] MEDS: [UNRECOGNIZED DRUG - OTHER] PR SCH ×6 (05:51→21:10)
[2017-12-29 05:55] LABS: BAND % (MANUAL) 5 % (0-10); LYMPHOCYTES % (MANUAL) 3 % (20-40); MONOCYTES % (MANUAL) 1 % (2-10); MYELOCYTES % 1 % (0-0); NEUTROPHILS % (MANUAL) 90 % (42-75)
[2017-12-29] MEDS: PANTOPRAZOLE ORAL SUSPENSION 40 MG SUSPDR.PKT GT SCH ×2 (08:02→20:45)
[2017-12-29] MEDS: FINASTERIDE 5 MG TABLET PO SCH (08:02)
[2017-12-29] MEDS: AMIODARONE HCL 200 MG TABLET PO SCH ×2 (08:02→20:45)
[2017-12-29] MEDS: CALCIUM CARB/VITAMIN D 500MG-200UNITS TABLET PO SCH ×2 (08:02→17:10)
[2017-12-29] MEDS: DIFICID 200 MG TABLET PO SCH ×2 (08:04→20:44)
[2017-12-29] MEDS: Z GUARD REMEDY PASTE 57 GM TUBE TOP SCH ×2 (08:05→21:08)
--- NOTE | 2017-12-29 08:05 | NUR ---
N.G. tube replaced at this time. kub orders for placement verification.
--- NOTE | 2017-12-29 10:54 | NUR ---
Attending Lenard Marshall in the unit to examine pt. full report given. Awaiting for family's decision and as informed case management in the case coordinating possible transfer.
--- NOTE | 2017-12-29 11:55 | NUR ---
Cardiology services Dr. Martins in the unit to examine pt.
--- NOTE | 2017-12-29 12:01 | NUR ---
A call from Pt's son Mr. Rice for an up date. Nursing supervisor shuttle veneering present in the unit and witness that Mr. Rice got upset when informed that pt. was down graded to Telemetry, he started raising his voice . "stating he needs to remains in ICU how you guys are doing this to my dad has not been there forever". Mr. Rice advised to speak to attending physician, who determine patient is downgradable this morning.
--- NOTE | 2017-12-29 13:00 | NUR ---
PATIENT TRANSFERRED FROM CCU TO TELE BED 215. PT IS ON AIR MATTRESS, DVT PUMP, 2L NC, CENTRAL TRIPLE LUMEN ON THE RIGHT UPPER ARM, NGT, F/C, TPN FEEDING RUNNING AT 60ML/HR. BIAR HUGGER BY BEDSIDE. PT IS NON-VERBAL, NOTED PT MOANS AND GROANS, PT IS EDEMATOUS, BEDBOUND.
--- NOTE | 2017-12-29 13:10 | NUR ---
pt. transfer to room #215. bedside report given to Nely Basilio. transfer with oxygen, via own bed. No events son informed of transfer.
[2017-12-29] MEDS: MICAFUNGIN SODIUM 100 MG in IV NORMAL SALINE 100 ML IV SCH (15:40)
--- NOTE | 2017-12-29 15:49 | NUR ---
Clinical Pharmacy Note: TPN per Pharmacy Subjective: Patient has pancolitis per GI (Donald Austin) notes. GI recommends a period of bowel rest- r/o toxic ashish colon vs bowel ischemia. The patient starts on TPN to meet nutrional needs until feeding tube or feeding can be utilized to meet nutrional needs with tube feeding on 12/24. Consumer Studies Professor recommendation: Patient with PICC line. D10%+AA4.25% @ 60 ml/hr (note- lipid is on hold this weekend for TG > 400 (on 12/28)- Per clinical phlebotomist). This would provide 985 kcal (54% est calories needs at the low end) and 61 gm protein (69% est protein needs at the low end). Will adjust TPN rate when edema status improving. - Recheck TG tomorrow Objective: Labs: Na+ 141, K+ 4.0, Cl 113, CO2 17, BUN 75, Scr 1.5 Glucose 192 Ca++ 7.7 (corrected Ca++=9.46) Albumin 1.8(12/24), Mg++ 2.2 Phos 4.3 Triglycerides 406 (12/28), Chol 113(12/24), LDL 33(12/24), HDL 12(12/24) WBC 28.6 Temp 97.8 F Assessment/Plan: Bag #8: 1) Patient was on TPN via central line of final concentration D10%+AA4.5%, per clinical phlebotomist recommendation to run at 60ml/hr d/t worsening edema. Add 50 mEq/l Na acetate, calcium gluconate 1 gm/l, 3 mmole/l Kphos and 10ml MVI, 1ml trace elements. Per clinical phlebotomist recommendation, held 20% intralipids since TG increasing (406 on 12/28). Plan to check Triglyceride level tomorrow & re-assess with clinical phlebotomist. Patient continues on mild sliding scale q4hr per MD order Labs ordered for am. 2) TANIA Pike agreed to dc protein po supplement & Megace. 3) Per TANIA Pike continue oscal with vitamin D bid.
[2017-12-29] MEDS ORDERED: SODIUM ACETATE IV PRN ×7 (17:00)
[2017-12-29] MEDS ORDERED: [UNRECOGNIZED DRUG - OTHER] IV PRN ×7 (17:00)
[2017-12-29] MEDS ORDERED: POTASSIUM PHOSPHATE MM IV PRN ×7 (17:00)
[2017-12-29] MEDS ORDERED: CALCIUM GLUCONATE IV PRN ×7 (17:00)
--- NOTE | 2017-12-29 19:00 | NUR ---
TPN HUNG ANC CONFIRMED WITH CHARGE NURSE
[2017-12-29] MEDS: TAMSULOSIN HCL 0.4 MG CAP.SR.24H PO SCH (20:44)
[2017-12-30] VITALS: BP 88/55
--- NOTE | 2017-12-30 | NUR ---
REPORT RECEIVED FROM DOUGLAS BANDA
[2017-12-30] MEDS: BLOOD SUGAR DIAGNOSTIC 1 EACH STRIP VI SCH ×6 (00:17→20:34)
[2017-12-30] MEDS: VANCOMYCIN FOR PO/GT/NG USE PO SCH ×5 (00:17→23:20)
[2017-12-30] MEDS: INSULIN REGULAR, HUMAN 300 UNIT/3 ML VIAL SQ PRN ×4 (00:20→16:21)
--- NOTE | 2017-12-30 01:00 | NUR ---
PT IN ROOM ALERT AND AROUSABLE TO TOUCH. REMAINS NONVERBAL IN NO ACUTE DISTRESS. NG TUBE AND F/C INTACT. ABDOMEN REMAINS DISTENDED. CONTINUING ON TPN. OXYGEN AT 2L/MIN VIA N/C HOB MAINTAINED 30 DEGREES. BP 88/55 HR 89 RR 18 O2 SAT 98% T 97.4. 2 SIDE RAILS RAISED. NO S/S OF HYPER/HYPOGLYCEMIA. WILL CONTINUE TO MONITOR.
[2017-12-30 04:00] VITALS: BP 96/51
[2017-12-30] MEDS: METRONIDAZOLE 500 MG/NS 100ML 500 MG in PREMIXED 1 EACH IV SCH ×3 (05:00→21:57)
[2017-12-30] MEDS: [UNRECOGNIZED DRUG - OTHER] PR SCH ×6 (05:19→22:10)
--- NOTE | 2017-12-30 06:30 | NUR ---
PT REMAINS ASLEEP IN NO RESP DISTRESS. NO S/S OF FEVER, CHILLS, OR HYPOTHERMIA. REMAINING ON 2L/MIN OXYGEN WITH 97% O2 SAT. NO S/S OF HYPER/HYPOGLYCEMIA. NO ADVERSE REACTION TO FLAGYL IV OR VANCO PO THERAPY. PT NEEDS FREQUENT REPOSITIONING. TELEMETRY TECHNICIAN REMAINS SINUS RHYTHM. TPN REMAINS AT 60CC HR. WILL CONTINUE TO MONITOR. CONTINUING ON CAONTACT ISOLATION PRECAUTION.
[2017-12-30 06:36] LABS: BASOPHILS % (AUTO) 0.1 % (0.0-2.0); EOSINOPHILS % (AUTO) 0.2 % (0.0-7.0); HEMATOCRIT 28.5 % (36.7-47.1); HEMOGLOBIN 9.5 g/dL (12.5-16.3); LYMPHOCYTES # (AUTO) 0.6 K/uL (20.0-40.0); LYMPHOCYTES % (AUTO) 2.3 % (20.5-51.5); MEAN CORPUSCULAR HEMOGLOBIN 28.7 uug (23.8-33.4); MEAN CORPUSCULAR HGB CONC 33 g/dL (32.5-36.3); MEAN CORPUSCULAR VOLUME 86.4 fL (73.0-96.2); MONOCYTES # (AUTO) 1.2 K/uL (2.0-10.0); MONOCYTES % (AUTO) 4.6 % (0.0-11.0); NEUTROPHILS # (AUTO) 24.1 K/uL (1.8-8.9); NEUTROPHILS % (AUTO) 92.8 % (38.5-71.5); PLATELET COUNT (AUTO) 197 K/uL (152-348)
--- NOTE | 2017-12-30 08:00 | NUR ---
Abd distention noted. Bowel sounds hypoactive. PICC line on left arm x 3 lumen intact and flushing. Pt has anasarca and swollen throughout body. NGT audible in stomach. TPN infusing as ordered. Call light is within reach.
[2017-12-30 08:05] LABS: CARBON DIOXIDE 16 mmol/L (21-32); CHLORIDE 112 mmol/L (98-107); CREATININE 1.5 mg/dL (0.6-1.3); GLUCOSE 164 mg/dL (74-106); MAGNESIUM 2.2 mg/dL (1.8-2.4); PHOSPHOROUS 4.4 mg/dL (2.5-4.9); POTASSIUM 3.8 mmol/L (3.5-5.1); TRIGLYCERIDES 150 MG/DL (30-150); UREA NITROGEN, BLOOD 76 mg/dL (7-18)
[2017-12-30] MEDS: CALCIUM CARB/VITAMIN D 500MG-200UNITS TABLET PO SCH ×2 (08:42→16:21)
[2017-12-30] MEDS: PANTOPRAZOLE ORAL SUSPENSION 40 MG SUSPDR.PKT GT SCH ×2 (08:42→20:40)
[2017-12-30] MEDS: FINASTERIDE 5 MG TABLET PO SCH (08:42)
[2017-12-30] MEDS: Z GUARD REMEDY PASTE 57 GM TUBE TOP SCH ×2 (08:42→20:57)
[2017-12-30] MEDS: AMIODARONE HCL 200 MG TABLET PO SCH ×2 (08:43→20:41)
[2017-12-30] MEDS: DIFICID 200 MG TABLET PO SCH ×2 (08:44→20:50)
[2017-12-30 09:08] VITALS: BP 98/56
[2017-12-30 11:25] VITALS: BP 107/59
[2017-12-30] MEDS ORDERED: [UNRECOGNIZED DRUG - OTHER] IV PRN ×5 (12:00)
[2017-12-30] MEDS ORDERED: CALCIUM GLUCONATE IV PRN ×5 (12:00)
[2017-12-30] MEDS ORDERED: POTASSIUM PHOSPHATE MM IV PRN ×5 (12:00)
[2017-12-30] MEDS ORDERED: SODIUM ACETATE IV PRN ×5 (12:00)
[2017-12-30] MEDS ORDERED: IV FAT EMULSIONS 20% 250 ML IV SCH (14:00)
[2017-12-30] MEDS: MICAFUNGIN SODIUM 100 MG in IV NORMAL SALINE 100 ML IV SCH (15:21)
[2017-12-30 15:32] VITALS: BP 91/53
--- NOTE | 2017-12-30 18:30 | NUR ---
Pt has about 150 cc on greenish output on Low intermittent suction via ngt. Pt is in no acute distress. Call light is within reach.
[2017-12-30 20:18] VITALS: BP 99/56
[2017-12-30] MEDS: TAMSULOSIN HCL 0.4 MG CAP.SR.24H PO SCH (20:41)
[2017-12-31 00:41] VITALS: BP 106/59
[2017-12-31] MEDS: BLOOD SUGAR DIAGNOSTIC 1 EACH STRIP VI SCH ×5 (00:55→16:00)
[2017-12-31] MEDS: INSULIN REGULAR, HUMAN 300 UNIT/3 ML VIAL SQ PRN ×3 (00:58→12:27)
[2017-12-31] MEDS: VANCOMYCIN FOR PO/GT/NG USE PO SCH ×2 (05:06→12:16)
[2017-12-31] MEDS: METRONIDAZOLE 500 MG/NS 100ML 500 MG in PREMIXED 1 EACH IV SCH ×2 (05:08→14:41)
[2017-12-31] MEDS: [UNRECOGNIZED DRUG - OTHER] PR SCH ×4 (05:16→14:00)
[2017-12-31 05:33] VITALS: BP 94/57
--- NOTE | 2017-12-31 06:10 | NUR ---
PATIENT EYES OPEN, BUT DOES NOT RESPONSED TO VERBAL AND TACKTILE STIMULI, NGT FOR INTERMITTENT SUCTION PATENT, DRAINING WITH GREENISH YELLOW FLUIDS IN SMALL AMOUNT, APPROX 80CC, NO RESIDUAL NOTED, JACKSON CATH PATENT DRAINING WITH YELLOW BERNARD COLOR URINE IN MODERATE AMOUNT, NO S/S OF HYPO/HYPERGLYCEMIA NOTED, CONT ON CONTACT ISOLATION. C DIFF, MRSA CONT TO MONITOR.
--- NOTE | 2017-12-31 07:35 | NUR ---
PATIENT IN BED, CONFUSED, FLAT AFFECT. IV PICC LINE TRIPLE LUMEN TO LEFT FOREARM WITH TPN RUNNING AT 60CC/HR AND LIPIDS AT 5CC/HR. SR ON MONITOR. NG TUBE IN PLACE. SCROTUM EDEMA WITH PICTURE IN CHART.
[2017-12-31] MEDS: IPRATROPIUM BROMIDE 0.5 MG/2.5 ML NEBU NEB PRN (08:14)
[2017-12-31 08:23] LABS: CARBON DIOXIDE 17 mmol/L (21-32); CHLORIDE 113 mmol/L (98-107); CREATININE 1.5 mg/dL (0.6-1.3); GLUCOSE 158 mg/dL (74-106); PHOSPHOROUS 4.7 mg/dL (2.5-4.9); POTASSIUM 4.1 mmol/L (3.5-5.1); TRIGLYCERIDES 310 MG/DL (30-150); UREA NITROGEN, BLOOD 77 mg/dL (7-18)
[2017-12-31] MEDS ORDERED: MVI ADULT IV PRN ×6 (09:15)
[2017-12-31] MEDS ORDERED: [UNRECOGNIZED DRUG - OTHER] IV PRN ×6 (09:15)
[2017-12-31] MEDS ORDERED: SODIUM ACETATE IV PRN ×6 (09:15)
[2017-12-31] MEDS ORDERED: CALCIUM GLUCONATE IV PRN ×6 (09:15)
[2017-12-31] MEDS: CALCIUM CARB/VITAMIN D 500MG-200UNITS TABLET PO SCH (09:18)
[2017-12-31] MEDS: PANTOPRAZOLE ORAL SUSPENSION 40 MG SUSPDR.PKT GT SCH (09:19)
[2017-12-31] MEDS: DIFICID 200 MG TABLET PO SCH (09:19)
[2017-12-31] MEDS: FINASTERIDE 5 MG TABLET PO SCH (09:19)
[2017-12-31] MEDS: AMIODARONE HCL 200 MG TABLET PO SCH (09:19)
[2017-12-31] MEDS: Z GUARD REMEDY PASTE 57 GM TUBE TOP SCH (09:26)
[2017-12-31 11:02] VITALS: BP 99/54
--- NOTE | 2017-12-31 11:59 | NUR ---
Clinical Pharmacy Note: TPN per Pharmacy Subjective: Patient has pancolitis per GI (Donald Austin) notes. GI recommends a period of bowel rest- r/o toxic ashish colon vs bowel ischemia. The patient starts on TPN to meet nutrional needs until feeding tube or feeding can be utilized to meet nutrional needs with tube feeding on 12/24. On 12/30, per Froy Pike NP note- KUB demonstrates partial SBO - not a candidate for TFs. Forensic Technician recommendation: Patient with PICC line. D10%+AA4.25% @ 60 ml/hr (note- lipid was on hold this weekend for TG > 400 (on 12/28)-But Per forecast analyst, it was restarted at 125 ml /24hr on 12/30.Today, on 12/31, Forensic Technician recommends Intalipids 20% at 125 ml/24hr every other day) This would provide 985 kcal (54% est calories needs at the low end) and 61 gm protein (69% est protein needs at the low end). Will adjust TPN rate when edema status improving. Objective: Labs: Na+ 142, K+ 4.1, Cl 113, CO2 17, BUN 77, Scr 1.5 Glucose 158 Ca++ 7.2 (corrected Ca++=8.96) Albumin 1.8(12/24), Mg++ 2.0 Phos 4.7, Triglycerides 310, Chol 113(12/24), LDL 33(12/24), HDL 12(12/24) WBC 26 Temp 97.8 F Assessment/Plan: Bag #10: Patient was on TPN via central line of final concentration D10%+AA4.5%, per forecast analyst recommendation to run at 60ml/hr d/t worsening edema. Add 40 mEq/l Na acetate, calcium gluconate 1 gm/l, and 10ml MVI, 1ml trace elements. Bag # 11 Same as bag # 10 but without MVI & trace elements Per Dietitian recommendations- Intralipids 20% -125 ml/24hrs every OTHER day. No lipids due for 12/31 Patient continues on mild sliding scale q4hr per MD order Labs ordered for am. per dietitian recommendation TG to be checked on 01/02 with am labs TANIA Pike agreed to dc protein po supplement & Megace. Per Wilstein,CARDIOPULMONARY TECHNICIAN continue oscal with vitamin D bid.
[2017-12-31] MEDS ORDERED: TAMS-3 PO (12:47)
[2017-12-31] MEDS ORDERED: FINA5TAB11 PO (12:47)
[2017-12-31] MEDS ORDERED: CALC-555 PO (12:47)
[2017-12-31] MEDS ORDERED: METR500T4 PO (12:47)
[2017-12-31] MEDS ORDERED: FIDA200T PO (12:47)
[2017-12-31] MEDS ORDERED: PANT40SU2 GT (12:47)
[2017-12-31] MEDS ORDERED: ACET650S24 RC (12:47)
[2017-12-31] MEDS ORDERED: VANC500V PO (12:47)
[2017-12-31] MEDS ORDERED: BISA10SU12 RC (12:47)
[2017-12-31] MEDS ORDERED: AMIO200T6 PO (12:47)
[2017-12-31] MEDS: IV NORMAL SALINE 250 ML IV PRN (14:54)
[2017-12-31] MEDS: MICAFUNGIN SODIUM 100 MG in IV NORMAL SALINE 100 ML IV SCH (15:00)
[2017-12-31 15:57] VITALS: BP 93/49
--- NOTE | 2017-12-31 16:00 | NUR ---
PATIENT DISCHARGED TO [facility]. DISCHARGE INSTRUCTIONS SENT WITH PATIENT TO THE FACILITY. C DIFF ISOLATION DISCONTINUED PER . OK TO TRANSFER PER [facility] CONTRACT ACCOUNTANT/ABORIGINAL EDUCATION WORKER COORDINATOR. VITAL SIGNS STABLE UPON TRANSFER. PATIENT DISCHARGED IN FAIR CONDITION. MEDICATIONS NOT GIVEN DUE TO DISCHARGE VANCOCIN 500MG GA, MYCAMINE 100MG IV, AND ACCU CHECK NOT DONE. PATIENT LEFT VIA AMBULANCE. REPORT GIVEN TO [facility] STAFF CHAN COLE. TPN DISCONTINUED. PATIENT DISCHARGED WITH NG TUBE IN PLACE AND TRIPLE LUMEN PICC LINE IN PLACE. UPDATED PICTURES TAKEN OF SACRUM AND SCROTUM.
[2018-01-01] MEDS ORDERED: [UNRECOGNIZED DRUG - OTHER] IV PRN ×4 (02:30)
[2018-01-01] MEDS ORDERED: CALCIUM GLUCONATE IV PRN ×4 (02:30)
[2018-01-01] MEDS ORDERED: AMINO ACID IV PRN ×4 (02:30)
[2018-01-01] MEDS ORDERED: SODIUM ACETATE IV PRN ×4 (02:30)
== END 2017-12-31 16:22 | DRG 871 ==
LOC: ER 20:39 → CCU 22:25 → TELE 12-29 12:51
PROVIDERS: ADMIT Nurse Practitioner Acute Care; ATTEND Nurse Practitioner Acute Care
PROC: 02HV33Z Insertion of Infusion Device into Superior Vena Cava, Percutaneous Approach (ICD-10-PCS; principal; 2017-12-19)
PROC: 0DH67UZ Insertion of Feeding Device into Stomach, Via Natural or Artificial Opening (ICD-10-PCS; 2017-12-20)
PROC: 3E0G76Z Introduction of Nutritional Substance into Upper GI, Via Natural or Artificial Opening (ICD-10-PCS; 2017-12-20)
DX: A41.59 Other Gram-negative sepsis (principal); J69.0 Pneumonitis due to inhalation of food and vomit; R65.21 Severe sepsis with septic shock; J96.01 Acute respiratory failure with hypoxia; G93.41 Metabolic encephalopathy; E43 Unspecified severe protein-calorie malnutrition; N17.0 Acute kidney failure with tubular necrosis; I21.A1 Myocardial infarction type 2; I50.31 Acute diastolic (congestive) heart failure; K51.00 Ulcerative (chronic) pancolitis without complications; A04.72 Enterocolitis due to Clostridium difficile, not specified as recurrent; J98.11 Atelectasis; K56.609 Unspecified intestinal obstruction, unspecified as to partial versus complete obstruction; I47.1 Supraventricular tachycardia; E87.2 Acidosis; D68.9 Coagulation defect, unspecified; R64 Cachexia; K40.00 Bilateral inguinal hernia, with obstruction, without gangrene, not specified as recurrent; R18.8 Other ascites; I13.0 Hypertensive heart and chronic kidney disease with heart failure and stage 1 through stage 4 chronic kidney disease, or unspecified chronic kidney disease; E78.1 Pure hyperglyceridemia; Z66 Do not resuscitate; B37.7 Candidal sepsis; Z22.322 Carrier or suspected carrier of Methicillin resistant Staphylococcus aureus; Z16.24 Resistance to multiple antibiotics; I25.10 Atherosclerotic heart disease of native coronary artery without angina pectoris; Z95.5 Presence of coronary angioplasty implant and graft; Z85.46 Personal history of malignant neoplasm of prostate; R62.7 Adult failure to thrive; Z68.24 Body mass index [BMI] 24.0-24.9, adult; M62.84 Sarcopenia; I48.0 Paroxysmal atrial fibrillation; F01.50 Vascular dementia, unspecified severity, without behavioral disturbance, psychotic disturbance, mood disturbance, and anxiety; F32.9 Major depressive disorder, single episode, unspecified; L89.152 Pressure ulcer of sacral region, stage 2; E83.51 Hypocalcemia; I70.0 Atherosclerosis of aorta; M47.814 Spondylosis without myelopathy or radiculopathy, thoracic region; N18.9 Chronic kidney disease, unspecified
CPT/HCPCS: 36415; 36600; 70030-TC; 71045; 74018; 83520; 83605; 83735; 84100; 84156; 84300; 84478; 85025; 85610; 85730; 86256; 87040; 87070; 87077; 87086; 87177; 87400; 93005; 93307; 94640; 94664; A4217; A4663; C9113; G0378; J0153; J0282; J0610; J1815; J1940; J1956; J2060; J2185; J2248; J2270; J2370; J2543; J3370; J3475; J3480; J3490; J3590; J7030; J7040; J7050; J7060; J7131; J8999; P9047; Q9967